=== PATIENT | male | born 1940 | race Caucasian/White ===

== ENCOUNTER → 2018-12-31 | Outpatient (CLI) | payer MEDICARE ==
[~2018-12-31] MED LIST: ALBU90OI INH; AMLO5; AMLO5 PO; ASPI325EC PO; ASPI81CH; B-12500 MCG PO; BISA10S PR; BUDE6HFA; BUDE6HFA INH; CENTRUM SILVER1 EAC2 PO; Coq-1030 MG PO; DOCU100 PO; DOXY100T53; DULERA 200 MCG/13 GM; DULERA 200 MCG/13 GM INH; EPINEPHRIN0.3 MG/0.3; FISH1000 PO; FLONASE ALLERG9.9 ML; FLONASE ALLERG9.9 ML INH; FOLI1 PO; GABA300 PO; GLIM2 PO; HYDCHL25 PO; INSDET100 SC; INSU100I6 SC; K-Dur10 MEQ PO; LAVAP17G PO; LEVFLO500; LISHYD2025 PO; LISI20 PO; LISI5; LORA.5 PO; LOVA40; LOVA40 PO; METF500C PO; METF850; METO25; METO25ER; METO25ER PO; MULVITMIND PO; Micro-K10 MEQ; Micro-K10 MEQ PO; Milk Of Ma400 MG/5 M PO; NUTRISOURCE FIBE4 GM PO; OMEP20ER PO; OMEPRAZOLE DR 40 MG; Omeprazole20 M1 PO; POTA10T; POTCHL10ER PO; PRED10; PRED20 PO; Potassium Chlo10 ME1; THIA100 PO; TIOT18 INH; TORSE20 PO; TUDORZA PRESS400 MCG IH; TUDORZA PRESS400 MCG INH; Ventolin5 MG/1 ML INH; [UNRECOGNIZED DRUG - CODE] PO
== END | disposition home or self-care (01) ==
LOC: LAB EV 10:00
DX: E11.9 Type 2 diabetes mellitus without complications (principal); I10 Essential (primary) hypertension; E78.2 Mixed hyperlipidemia
CPT/HCPCS: 82043

== ENCOUNTER 2020-01-13 16:10 | Emergency (ER) | payer MEDICARE ==
[~2020-01-13] VITALS: Ht 177.8 cm; Wt 108.9 kg
== END 2020-01-13 20:11 | disposition home or self-care (01) ==
LOC: ER 16:10
DX: M16.12 Unilateral primary osteoarthritis, left hip (principal); M17.0 Bilateral primary osteoarthritis of knee; E11.9 Type 2 diabetes mellitus without complications; I10 Essential (primary) hypertension; E78.5 Hyperlipidemia, unspecified; G47.33 Obstructive sleep apnea (adult) (pediatric); N40.0 Benign prostatic hyperplasia without lower urinary tract symptoms; Z87.891 Personal history of nicotine dependence; Z88.0 Allergy status to penicillin; Z88.8 Allergy status to other drugs, medicaments and biological substances; Z79.82 Long term (current) use of aspirin; Z79.4 Long term (current) use of insulin; Z79.899 Other long term (current) drug therapy; W19.XXXA Unspecified fall, initial encounter
CPT/HCPCS: 29505; 73502; 73562-LT; 73562-RT; 99283-25; A9270-GY

== ENCOUNTER 2020-02-24 09:24 | Inpatient (IN) | payer MEDICARE ==
[~2020-02-24] VITALS: Ht 177.8 cm; Wt 97.7 kg
[~2020-02-24 09:24] MED LIST changes: -INSDET100 SC; +STIOLTO RESPIMAT4 GM IH
[2020-02-24 10:03] LABS: BASOPHILS ABSOLUTE AUTO 0.06 K/mm3 (0.00-0.23); BASOPHILS PERCENT AUTO 1 % (0-2); EOSINOPHILS PERCENT AUTO 1 % (0-6); Hematocrit 44.6 % (37.0-53.0); Hemoglobin 14.2 g/dL (13.5-17.5); IMMATURE GRAN ABSOLUTE AUTO 0.06 K/mm3 (0.00-0.10); IMMATURE GRAN PERCENT AUTO 1 % (0-1); LYMPHOCYTES ABSOLUTE AUTO 3.01 K/mm3 (0.84-5.20); LYMPHOCYTES PERCENT AUTO 25 % (21-46); MONOCYTES ABSOLUTE AUTO 1.08 K/mm3 (0.16-1.47); MONOCYTES PERCENT AUTO 9 % (4-13); Mean Corpuscular HGB 31.1 pg (26.0-34.0); Mean Corpuscular HGB Conc 31.8 g/dL (31.5-36.5); Mean Corpuscular Volume 98 fL (80-100); Mean Platelet Volume 11.3 fL (9.1-12.4); NEUTROPHILS ABSOLUTE AUTO 7.86 K/mm3 (1.96-9.15); NEUTROPHILS PERCENT AUTO 65 % (41-73); Platelet Count 358 K/mm3 (150-400); RDW Coefficient Variation 14.4 % (11.7-14.2); RDW Standard Deviation 51.5 fL (35.1-46.3); Red Blood Cell Count 4.56 M/mm3 (4.30-5.90); White Blood Cell Count 12.17 K/mm3 (4.00-11.30)
[2020-02-24] MEDS ORDERED: Aspir 8181 MG PO (10:18)
[2020-02-24 10:19] LABS: International Normalized Ratio 1.02; Prothrombin Time Results 10.9 Sec (9.7-11.5)
[2020-02-24] MEDS ORDERED: INSDET100 SC (10:24)
--- NOTE | 2020-02-24 10:42 | NUR ---
1040 LAB AT BEDSIDE FOR BMP REDRAW, PRIOR SAMPLE HEMOLYZED.
[2020-02-24 11:09] LABS: Anion Gap 7 mmol/L (6-16); Blood Urea Nitrogen 27 mg/dL (8-24); Bun/Creatinine Ratio 28.8 (12.0-20.0); CO2, Blood 26 mmol/L (21-32); Calcium, Blood 9.2 mg/dL (8.5-10.1); Chloride, Blood 111 mmol/L (98-108); Creatinine, Blood 0.94 mg/dL (0.60-1.20); Glomerular Filtration Rate >60 (60-); Glucose, Blood 113 mg/dL (70-99); Sodium, Blood 144 mmol/L (136-145)
--- NOTE | 2020-02-24 19:24 | NUR ---
SIHFT SUMMARY RECEIVED BEDSIDE REPORT FROM LONG AGUIRRE RN FROM CHIEF CREATIVE OFFICER; PT TO ROOM AT 1410 IN BED. PT ORIENTED TO ROOM AND CALL LIGHT; EDUCATED ON FALL RISK. PT A&Ox4; CALM AND COOPERATIVE WITH CARE. PT REST IN BED DURING SHIFT. PT PACEMAKER PLACED TO LEFT CHEST WALL; DRESSING C/D/I. PT DENIES PAIN, CHEST PAIN/PRESSURE/TENDERNESS, SOB, NAUSEA AND DIZZINESS. VSS. NO OTHER ACUTE CHANGES NOTED DURING SHIFT. REPORT GIVEN TO ONCOMING RN.
--- NOTE | 2020-02-25 05:58 | NUR ---
SHIFT SUMMARY: PATIENT COOPERATIVE WITH CARE AND KEEPING ARM WITHIN HIS SLING WITH VERY LITTLE MOVEMENT. APPROX 0330 PATIENT HR BEGAN TO DROP INTO THE MID 40'S, HEART MONITOR DISPLAYED DROPPED BEATS POST PACER SPIKE. THIS HAPPENED INTERMITTENTLY AND PATIENT ASYMPTOMATIC WITH EPISODES, NO OTHER ISSUES NOTED, MONITORED CLOSELY.
--- NOTE | 2020-02-25 18:23 | NUR ---
SHIFT SUMMARY DR MIX AT BEDSIDE THIS AM; PT TAKEN BACK TO TILTING SAW OPERATOR FOR LEAD REPOSITIONING. PT BACK TO ROOM AT APPROX 1030; LEFT CHEST WALL DRESSING HAS SMALL AMOUNT OF YELLOW DRAINAGE; SMALL AMOUNT OF REDNESS NOTED SURROUNDING THE SITE, WILL CONTINUE TO MONITOR. NO OTHER EVENTS NOTED BY TELE. PT APPEARS TO BE SLEEPING FOR MAJORITY OF MORNING; REQUESTING WE WAIT FOR MEDICATIONS AND FOOD. PT APPEARED DROWSY AND SHAKEY; CBG 76; PT AWAKE AND EATING LUNCH. PT REPORT BEING UNCOMFORTABLE, REPOSITIONED FOR COMFORT. VSS. NO OTHER ACUTE CHANGES NOTED DURING SHIFT. REPORT GIVEN TO ONCOMING RN.
--- NOTE | 2020-02-26 04:19 | NUR ---
SHIFT SUMMARY: PATIENT EXPERIENCING MULTIPLE ISSUES WITH PAIN AND TEMPERATURE AFTER SECOUND SURGERY TO REPLACE PATIENTS DISLOGED LEAD. MEDICATIONS ADMINISTERD PER MD ORDER, PATIENT SLOWLY IMPROVING THROUGHOUT SHIFT. IMMOBILIZER PLACED ON LEFT ARM TO PREVENT ANY OTHER ISSUES WIH PACER LEADS. INTERMITTENT INCONTINANCE AND SOME MILD INTEMITTENT CONFUSION. VSS, CALL LIGHT WITHIN REACH, BED LOW AND LOCKED AND PATIENT MONITORED CAREFULLY.
--- NOTE | 2020-02-26 16:55 | NUR ---
SHIFT SUMMARY... ASSUMED CARE OF THE PT APROX 0700. PT WAS A&Ox4, S/P PACEMAKER PLACEMENT. PT WAS TO D/C HOME TODAY. PT'S VS WERE STABLE UNTIL APROX 1050, WHEN HIS BP DROPPED INTO THE 70'S/50'S. PT WAS SYMPTOMATIC FEELING DIZZY AND HAVING NAUSEA, PT WAS ALSO PALE AND DIAPHORETIC DURING THIS TIME. PROVIDER WAS CALLED, 500MLS BOLUS WAS ORDERED. THIS IMPROVED THE PT'S VS SLOWLY OVER SEVERAL HOURS. ONCE THE PT'S BP WAS STABLE PT WAS GOTTEN UP TO THE SIDE OF THE BED TO SEE HOW THE PT TOLERATED ACTIVITY. IT TOOK 2 STAFF TO HELP THE PT STAND UP AND TRANSFER TO A CHAIR. PT/OT WAS ORDERED TO EVALUATE THE PT'S SAFETY TO D/C HOME. IT TOOK 3 STAFF TO HELP THE PT BACK INTO BED. PROVIDER IS AWARE AND D/C WAS STOPPED AT THIS TIME. CURRENTLY PT'S VS STABLE, HE IS ON HIS BASELINE OF 3L NC. SHOULDER IMMOBILIZER IS IN PLACE. CALL LIGHT IN REACH WILL CONTINUE TO MONITOR UNTIL REPORT IS GIVEN TO ONCOMING RN.
--- NOTE | 2020-02-27 04:02 | NUR ---
SHIFT SUMMARY PT IS A/O X4. S/P PACER PLACEMENT 02/23 WITH REVISION 02/24 FOR DISLODGED LEADS. PT HAS HAD ARM IMMOBILIZER IN PLACE TO L ARM. DRESSING TO L CHEST CDI. PT HAS BEEN USING O2 NC WHICH IS BASELINE FOR HIM. TELE IN PLACE THROUGHOUT THE SHIFT. NO ACUTE CHANGES. VSS. WCTM.
[2020-02-27 14:04] LABS: BASOPHILS ABSOLUTE AUTO 0.04 K/mm3 (0.00-0.23); BASOPHILS PERCENT AUTO 0 % (0-2); EOSINOPHILS ABSOLUTE AUTO 0.19 K/mm3 (0.00-0.68); EOSINOPHILS PERCENT AUTO 1 % (0-6); Hematocrit 45.5 % (37.0-53.0); Hemoglobin 14.5 g/dL (13.5-17.5); IMMATURE GRAN ABSOLUTE AUTO 0.06 K/mm3 (0.00-0.10); IMMATURE GRAN PERCENT AUTO 0 % (0-1); LYMPHOCYTES PERCENT AUTO 22 % (21-46); MONOCYTES ABSOLUTE AUTO 1.77 K/mm3 (0.16-1.47); MONOCYTES PERCENT AUTO 13 % (4-13); Mean Corpuscular HGB 31.1 pg (26.0-34.0); Mean Corpuscular HGB Conc 31.9 g/dL (31.5-36.5); Mean Corpuscular Volume 98 fL (80-100); Mean Platelet Volume 10.1 fL (9.1-12.4); NEUTROPHILS ABSOLUTE AUTO 8.43 K/mm3 (1.96-9.15); NEUTROPHILS PERCENT AUTO 63 % (41-73); Platelet Count 281 K/mm3 (150-400); RDW Coefficient Variation 14.3 % (11.7-14.2); RDW Standard Deviation 51.4 fL (35.1-46.3); Red Blood Cell Count 4.66 M/mm3 (4.30-5.90); White Blood Cell Count 13.49 K/mm3 (4.00-11.30)
[2020-02-27 15:08] LABS: Alanine Aminotransfer (ALT/SGP 13 U/L (12-78); Albumin, Blood 2.5 g/dL (3.4-5.0); Albumin/Globulin Ratio 0.5 (0.8-1.8); Alk Phos 85 U/L (50-136); Anion Gap 13 mmol/L (6-16); Aspartate Aminotrans (AST/SGOT 16 U/L (12-37); Bilirubin, Total 0.9 mg/dL (0.1-1.0); Blood Urea Nitrogen 30 mg/dL (8-24); CO2, Blood 18 mmol/L (21-32); Calcium, Blood 9.1 mg/dL (8.5-10.1); Chloride, Blood 107 mmol/L (98-108); Creatinine, Blood 0.91 mg/dL (0.60-1.20); Globulin, Blood 5.3 g/dL (2.2-4.0); Glomerular Filtration Rate >60 (60-); Glucose, Blood 70 mg/dL (70-99); Potassium, Blood 4.1 mmol/L (3.5-5.5); Sodium, Blood 138 mmol/L (136-145); Total Protein, Blood 7.8 g/dL (6.4-8.2)
--- NOTE | 2020-02-27 15:40 | NUR ---
CL 2.4 LACTIC RECEIVED CALL FROM LAB. CALLED HOSPITALIST BLACK PAGER W/RETURN NUMBER FOR PCU.
--- NOTE | 2020-02-27 15:52 | NUR ---
RECEIVED CALL FROM HOSPITALIST Aruna MALONE RE LACTIC ACID 2.4; RECEIVED NEW ORDER FOR NS @ 100 MLS/HR.
[2020-02-27 16:05] LABS: Source, Urine Clean Catch
[2020-02-27 16:11] LABS: Bilirubin, Urine Neg (Neg); Blood, Urine Neg (Neg); Glucose Qualitative, Urine Neg (Neg); Ketones, Urine Neg (Neg); Leukocyte Esterase, Urine 1+ (Neg); Nitrite, Urine Neg (Neg); Protein, Urine Neg (Neg); Specific Gravity, Urine 1.015 (1.003-1.022); Urobilinogen, Urine NORM (Normal)
[2020-02-27 16:17] LABS: Appearance, Urine Clear (Clear); Color, Urine Yellow (P-Yellow)
[2020-02-27 16:18] LABS: Bacteria Few /hpf; Granular Casts 0-2 /lpf (0); Red Blood Cells, Urine 0-2 /hpf (0-2); Squamous Epithelial Cells Not Seen /hpf (Few)
--- NOTE | 2020-02-27 18:09 | NUR ---
SHIFT SUMMARY A/O X4, VSS. UP TO CHAIR DURING SHIFT, PT EVAL, EDU&ENC TCDB, IS. FLUID RESUSCITATION STARTED AFTER CRIT LACT ACID LAB; 1L NS, LEVOFLOXACIN/CLINDAMYCIN. IV REPLACED BETWEEN ANTIBIOTICS. PT IN BED W/ FLUIDS INFUSING, WILL CONTINUE TO MONITOR. REPORT TO BE GIVEN TO GERMAN JUÁREZ.
--- NOTE | 2020-02-27 18:26 | NUR ---
TELEPHONE CALL WITH HOSPITALIST RAYO RE CH LACTIC OF 2.9; EXPLAINED NS BOLUS INFUSION NOT COMPLETE AFTER 1ST CH 2.4; NEW ORDER FOR FU LACTIC ACID LAB FOLLOWING BOLUS INFUSION.
--- NOTE | 2020-02-27 19:16 | NUR ---
1L BOLUS NS COMPLETE.
[2020-02-28 03:47] LABS: BASOPHILS ABSOLUTE AUTO 0.04 K/mm3 (0.00-0.23); BASOPHILS PERCENT AUTO 0 % (0-2); EOSINOPHILS ABSOLUTE AUTO 0.23 K/mm3 (0.00-0.68); EOSINOPHILS PERCENT AUTO 2 % (0-6); Hematocrit 40.9 % (37.0-53.0); Hemoglobin 12.7 g/dL (13.5-17.5); IMMATURE GRAN ABSOLUTE AUTO 0.04 K/mm3 (0.00-0.10); IMMATURE GRAN PERCENT AUTO 0 % (0-1); LYMPHOCYTES PERCENT AUTO 21 % (21-46); MONOCYTES ABSOLUTE AUTO 1.31 K/mm3 (0.16-1.47); MONOCYTES PERCENT AUTO 11 % (4-13); Mean Corpuscular HGB 30.5 pg (26.0-34.0); Mean Corpuscular HGB Conc 31.1 g/dL (31.5-36.5); Mean Corpuscular Volume 98 fL (80-100); Mean Platelet Volume 10.1 fL (9.1-12.4); NEUTROPHILS ABSOLUTE AUTO 7.43 K/mm3 (1.96-9.15); NEUTROPHILS PERCENT AUTO 65 % (41-73); Platelet Count 245 K/mm3 (150-400); RDW Coefficient Variation 14.2 % (11.7-14.2); RDW Standard Deviation 51.3 fL (35.1-46.3); Red Blood Cell Count 4.17 M/mm3 (4.30-5.90); White Blood Cell Count 11.45 K/mm3 (4.00-11.30)
[2020-02-28 04:09] LABS: Albumin, Blood 2.2 g/dL (3.4-5.0); Anion Gap 9 mmol/L (6-16); Blood Urea Nitrogen 29 mg/dL (8-24); CO2, Blood 23 mmol/L (21-32); Calcium, Blood 8.6 mg/dL (8.5-10.1); Chloride, Blood 109 mmol/L (98-108); Creatinine, Blood 0.97 mg/dL (0.60-1.20); Glomerular Filtration Rate >60 (60-); Glucose, Blood 102 mg/dL (70-99); Magnesium, Blood 1.8 mg/dL (1.6-2.4); Phosphorus, Blood 3.3 mg/dL (2.5-4.9); Potassium, Blood 3.8 mmol/L (3.5-5.5); Sodium, Blood 141 mmol/L (136-145)
--- NOTE | 2020-02-28 06:03 | NUR ---
SHIFT SUMMARY PT A&O; COMPLIANT W/ CARE; VSS; DENIES CHEST PAIN; PACED W/ UNDERLYING AFLUTTER NOTED ON TELE; O2 SATS >93 ON 3L NC; DIM LUNG SOUNDS NOTED; PO FLUIDS & SNACKS ENCOURAGED; NS INFUSING; DENTURE CUP BROUGHT TO PT AND SOAKED FULL SET AT BEDTIME; CALL LIGHT IN REACH; BED IN LOWEST POSITION; WILL CONTINUE TO MONITOR CLOSELY UNTIL HAND OFF TO DAY SHIFT RN.
--- NOTE | 2020-02-28 18:11 | NUR ---
SHIFT SUMMARY NO ACUTE CHANGES NOTED THROUGH THE DAY. VSS, PT REMAINS ON 3L O2 VIA NC. LACTIC ACID STILL ELEVATED, 1000 ML NS BOLUS WAS GIVEN PER ORDERS, PACER DRSG REMAINS C/D/I, LEFT ARM IMMOBILIZED, ELEVATED ON A PILLOW, CIRC WNL, MINIMAL PAIN REPORTED AT SITE. PT IS TOLERATING PO INTAKE, VOIDING WNL, SCD'S ARE ON, CALL LIGHT IN REACH, WCTM
[2020-02-29 04:07] LABS: BASOPHILS ABSOLUTE AUTO 0.05 K/mm3 (0.00-0.23); BASOPHILS PERCENT AUTO 0 % (0-2); EOSINOPHILS ABSOLUTE AUTO 0.14 K/mm3 (0.00-0.68); EOSINOPHILS PERCENT AUTO 1 % (0-6); Hematocrit 39.7 % (37.0-53.0); Hemoglobin 12.5 g/dL (13.5-17.5); IMMATURE GRAN ABSOLUTE AUTO 0.06 K/mm3 (0.00-0.10); IMMATURE GRAN PERCENT AUTO 1 % (0-1); LYMPHOCYTES ABSOLUTE AUTO 2.65 K/mm3 (0.84-5.20); LYMPHOCYTES PERCENT AUTO 21 % (21-46); MONOCYTES ABSOLUTE AUTO 1.58 K/mm3 (0.16-1.47); MONOCYTES PERCENT AUTO 13 % (4-13); Mean Corpuscular HGB Conc 31.5 g/dL (31.5-36.5); Mean Corpuscular Volume 99 fL (80-100); Mean Platelet Volume 9.9 fL (9.1-12.4); NEUTROPHILS ABSOLUTE AUTO 8.17 K/mm3 (1.96-9.15); NEUTROPHILS PERCENT AUTO 65 % (41-73); Platelet Count 266 K/mm3 (150-400); RDW Coefficient Variation 14.2 % (11.7-14.2); RDW Standard Deviation 51.7 fL (35.1-46.3); Red Blood Cell Count 4.03 M/mm3 (4.30-5.90); White Blood Cell Count 12.65 K/mm3 (4.00-11.30)
[2020-02-29 04:30] LABS: Albumin, Blood 2.2 g/dL (3.4-5.0); Anion Gap 9 mmol/L (6-16); Blood Urea Nitrogen 23 mg/dL (8-24); Bun/Creatinine Ratio 23.4 (12.0-20.0); CO2, Blood 22 mmol/L (21-32); Calcium, Blood 8.7 mg/dL (8.5-10.1); Chloride, Blood 111 mmol/L (98-108); Creatinine, Blood 0.98 mg/dL (0.60-1.20); Glomerular Filtration Rate >60 (60-); Glucose, Blood 114 mg/dL (70-99); Magnesium, Blood 1.6 mg/dL (1.6-2.4); Potassium, Blood 4.4 mmol/L (3.5-5.5); Sodium, Blood 142 mmol/L (136-145)
--- NOTE | 2020-02-29 07:46 | NUR ---
SHIFT SUMMARY PT A&O; VSS; PACED ON TELE W/ UNDERLYING AFLUTTER; DENIES CHEST PAIN; BINDER IN PLACE TO HOLD L ARM; DRESSING C/D/I; O2 SATS >93 ON 4L NC; RT TO BEDSIDE TO ASSESS CPAP NEEDS; INCONTINENT W/ ATTENDS IN PLACE; CALL LIGHT IN REACH; BED IN LOWEST POSITION; REPORT GIVEN TO DAY SHIFT RN.
--- NOTE | 2020-02-29 18:31 | NUR ---
SHIFT SUMMARY NO ACUTE CHANGES NOTED THROUGH THE DAY. PT ENC TO USE INCENTIVE SPIROMETER FREQUENTLY, EDUCATION PROVIDED, DRSG REMAINS C/D/I, PT DENIES PAIN, VSS, 4 L O2 VIA NC. TOLERATING PO INTAKE, VOIDING WNL. WCTM
[2020-03-01 03:38] LABS: BASOPHILS ABSOLUTE AUTO 0.05 K/mm3 (0.00-0.23); BASOPHILS PERCENT AUTO 0 % (0-2); EOSINOPHILS ABSOLUTE AUTO 0.36 K/mm3 (0.00-0.68); EOSINOPHILS PERCENT AUTO 3 % (0-6); Hematocrit 39.7 % (37.0-53.0); Hemoglobin 12.5 g/dL (13.5-17.5); IMMATURE GRAN ABSOLUTE AUTO 0.05 K/mm3 (0.00-0.10); IMMATURE GRAN PERCENT AUTO 0 % (0-1); LYMPHOCYTES ABSOLUTE AUTO 2.57 K/mm3 (0.84-5.20); LYMPHOCYTES PERCENT AUTO 22 % (21-46); MONOCYTES ABSOLUTE AUTO 1.45 K/mm3 (0.16-1.47); MONOCYTES PERCENT AUTO 12 % (4-13); Mean Corpuscular HGB 30.8 pg (26.0-34.0); Mean Corpuscular HGB Conc 31.5 g/dL (31.5-36.5); Mean Corpuscular Volume 98 fL (80-100); Mean Platelet Volume 9.8 fL (9.1-12.4); NEUTROPHILS ABSOLUTE AUTO 7.32 K/mm3 (1.96-9.15); NEUTROPHILS PERCENT AUTO 62 % (41-73); Platelet Count 245 K/mm3 (150-400); RDW Coefficient Variation 14.2 % (11.7-14.2); RDW Standard Deviation 51.4 fL (35.1-46.3); Red Blood Cell Count 4.06 M/mm3 (4.30-5.90)
[2020-03-01 03:53] LABS: Albumin, Blood 2.3 g/dL (3.4-5.0); Anion Gap 8 mmol/L (6-16); Blood Urea Nitrogen 20 mg/dL (8-24); Bun/Creatinine Ratio 25.6 (12.0-20.0); CO2, Blood 23 mmol/L (21-32); Chloride, Blood 110 mmol/L (98-108); Creatinine, Blood 0.78 mg/dL (0.60-1.20); Glomerular Filtration Rate >60 (60-); Glucose, Blood 107 mg/dL (70-99); Magnesium, Blood 1.7 mg/dL (1.6-2.4); Phosphorus, Blood 3.4 mg/dL (2.5-4.9); Potassium, Blood 4.3 mmol/L (3.5-5.5); Sodium, Blood 141 mmol/L (136-145)
--- NOTE | 2020-03-01 05:39 | NUR ---
SHIFT SUMMARY PT A&O; VSS; O2 SATS >93 ON 4L NC; PT DESATS WHEN SLEEPING; CPAP USED A COUPLE OF HOURS AND THEN PT REFUSED; RT AT BEDSIDE TO ASSESS; CONTINENT/INCONTINENT W/ ATTENDS IN PLACE; KCL INFUSING; CALLS APPROPRIATELY; CALL LIGHT IN REACH; BED IN LOWEST POSITION; WILL CONTINUE TO MONITOR UNTIL HAND OFF TO DAY SHIFT RN.
--- NOTE | 2020-03-01 16:21 | NUR ---
PT TRANSFERED. PT TRANSFERED TO ROOM 336 FROM [facility]. PT UP IN RECLINER AT THIS TIME. ORIENTED TO ROOM. CALL LIGHT IN REACH. AFTERNOON MEDS GIVEN. PT STABLE & NO CHANGES IN PRIOR ASSESSMENT AT THIS TIME. WILL CONTINUE TO MONITOR UNTIL TURNOVER IS COMPLETE.
--- NOTE | 2020-03-02 06:08 | NUR ---
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 PT has sinus with occasional paced. He uses oxygen or CPAP for LIZETTE. Desats to as low as 75% on room air when PT removed oxygen. Has bioxx which alarms frequently. CO lt upper chest wall pain meds given x 2 with helpful effect. Up with 2 max assist to get back to bed from bedside chair. Needs extensive cues & assist. PT on xaralto & oral antihyperglycemics blood glucose 105 at HS. BVed larm to prevent unassisted transfers. Continues on IV fluids with k at 125 ml hour. Bilat LE & generalized edema.
--- NOTE | 2020-03-02 16:25 | NUR ---
SHIFT SUMMARY PT IS A/O TO HIMSELF, SITUATION AND FOLLOWING DIRECTIONS. HE IS A MAX X 2 ASSIST FOR TRANSFERS AND HAS BEEN WORKING WITH THERAPY TODAY. HE WAS IN IN THE CHAIR FOR MEALS. DRESSING TO PACEMAKER ON LEFT CHEST WALL IS C.D.I. HE DID C/O PAIN TO THE PACEMAKER SITE AND WAS MEDICATED ORDERED AND REPORTED THE PAIN MEDS TO BE EFFECTIVE. PER CARE MANAGEMENT HE IS SCHEDULED TO DC TO SNF THIS JUAN CARLOS. AND EARLY DINNER TRAY WAS ORDERED FOR HIM SO HE CAN EAT BEFORE HE LEAVES. IV FLUIDS/ ABO HAVE INFUSED ORDERED WITH NO ISSUE. REPORT WAS CALLED TO . AND HIS RIDE IS SCHEDULED FOR 1744.
[2020-03-02] MEDS ORDERED: Florastor250 MG PO (18:01)
[2020-03-02] MEDS ORDERED: CLIN300 PO (18:01)
[2020-03-02] MEDS ORDERED: XARELTO20 MG PO (18:02)
== END 2020-03-02 17:44 | DRG 981 ==
LOC: MHTC 09:24 → PCU 13:53 → MHTC 02-25 15:13 → PCU 02-25 15:14 → MEDS 03-01 15:51
PROVIDERS: Internal Medicine Gastroenterology; ADMIT Internal Medicine Cardiovascular Disease
PROC: 0JH606Z Insertion of Pacemaker, Dual Chamber into Chest Subcutaneous Tissue and Fascia, Open Approach (ICD-10-PCS; principal; 2020-02-24)
PROC: 02HK3JZ Insertion of Pacemaker Lead into Right Ventricle, Percutaneous Approach (ICD-10-PCS; 2020-02-24)
PROC: 02H63JZ Insertion of Pacemaker Lead into Right Atrium, Percutaneous Approach (ICD-10-PCS; 2020-02-24)
PROC: 3E0102A Introduction of Anti-Infective Envelope into Subcutaneous Tissue, Open Approach (ICD-10-PCS; 2020-02-24)
PROC: 02WA3MZ Revision of Cardiac Lead in Heart, Percutaneous Approach (ICD-10-PCS; 2020-02-25)
DX: J69.0 Pneumonitis due to inhalation of food and vomit (principal); J96.21 Acute and chronic respiratory failure with hypoxia; I44.2 Atrioventricular block, complete; E87.2 Acidosis; J44.1 Chronic obstructive pulmonary disease with (acute) exacerbation; I48.0 Paroxysmal atrial fibrillation; I10 Essential (primary) hypertension; I49.5 Sick sinus syndrome; E66.9 Obesity, unspecified; Z79.01 Long term (current) use of anticoagulants; G47.33 Obstructive sleep apnea (adult) (pediatric); E11.9 Type 2 diabetes mellitus without complications; E78.00 Pure hypercholesterolemia, unspecified; K20.9 Esophagitis, unspecified; Z99.81 Dependence on supplemental oxygen
CPT/HCPCS: 33208; 33215; 36415; 71045; 71046; 80048; 80053; 80069; 81001; 82947; 83605; 83735; 83880; 84145; 85025; 85610; 85730; 87040; 87086; 93306; 94640; 94660; 94760; 94762; 97110; 97112; 97162; 97166; 97530; 99152; 99153; A9270; A9270-GY; C1781; C1785; C1894; C1898; J0690; J1644; J1956; J2250; J3010; J3370; J3480; J7030; J7040; U0002

== ENCOUNTER 2020-03-08 01:01 | Emergency (ER) | payer MEDICARE ==
[~2020-03-08] VITALS: Ht 177.8 cm; Wt 103.4 kg
[~2020-03-08 01:01] MED LIST changes: +Aspir 8181 MG PO; +CLIN300 PO; +Florastor250 MG PO; +INSDET100 SC; +XARELTO20 MG PO
== END 2020-03-08 01:30 | disposition home or self-care (01) ==
LOC: ER 01:01
DX: Z00.8 Encounter for other general examination (principal); E11.9 Type 2 diabetes mellitus without complications; I10 Essential (primary) hypertension; E78.5 Hyperlipidemia, unspecified; J44.9 Chronic obstructive pulmonary disease, unspecified; G47.33 Obstructive sleep apnea (adult) (pediatric); Z87.891 Personal history of nicotine dependence; Z95.0 Presence of cardiac pacemaker
CPT/HCPCS: 99284

== ENCOUNTER 2020-08-23 06:12 | Inpatient (IN) | payer MEDICARE ==
[~2020-08-23] VITALS: Ht 180.3 cm; Wt 104.8 kg
[~2020-08-23 06:12] MED LIST changes: +STIOLTO RESPIMAT4 G1 INH
--- NOTE | 2020-08-23 07:05 | NUR ---
History, Chart, Medications and Allergies reviewed before start of procedure. Lungs clear T/O to Auscultation. Pre-Op teaching done. Pt verbalizes understanding.
--- NOTE | 2020-08-23 17:06 | NUR ---
SHIFT SUMMARY PT HAS DONE WELL POST OP. EATING, DRINKING, & VOIDING. WORKED WITH THERAPY. CONTINUES TO DENY PAIN. DECLINES SCHEDULED TYLENOL. DISCUSSED PREMEDCATING. NOT INTERESTED.
[2020-08-24 04:49] LABS: BASOPHILS ABSOLUTE AUTO 0.03 K/mm3 (0.00-0.23); BASOPHILS PERCENT AUTO 0 % (0-2); EOSINOPHILS PERCENT AUTO 0 % (0-6); IMMATURE GRAN ABSOLUTE AUTO 0.07 K/mm3 (0.00-0.10); IMMATURE GRAN PERCENT AUTO 0 % (0-1); LYMPHOCYTES ABSOLUTE AUTO 2.31 K/mm3 (0.84-5.20); LYMPHOCYTES PERCENT AUTO 13 % (21-46); MONOCYTES ABSOLUTE AUTO 2.15 K/mm3 (0.16-1.47); MONOCYTES PERCENT AUTO 12 % (4-13); Mean Corpuscular HGB 29.2 pg (26.0-34.0); Mean Corpuscular HGB Conc 31.6 g/dL (31.5-36.5); Mean Corpuscular Volume 93 fL (80-100); Mean Platelet Volume 10.2 fL (9.1-12.4); NEUTROPHILS ABSOLUTE AUTO 13.72 K/mm3 (1.96-9.15); NEUTROPHILS PERCENT AUTO 75 % (41-73); Platelet Count 224 K/mm3 (150-400); RDW Coefficient Variation 14.1 % (11.7-14.2); RDW Standard Deviation 47.8 fL (35.1-46.3); Red Blood Cell Count 4.11 M/mm3 (4.30-5.90); White Blood Cell Count 18.28 K/mm3 (4.00-11.30)
--- NOTE | 2020-08-24 05:12 | NUR ---
SHIFT SUMMARY LYING IN SEMI FOWLERS WITH EYES CLOSED, HAS RESTED THIS SHIFT. PAIN MANAGED WITH TYLENOL AND TORADOL PER MD ORDERS. DRESSING TO RIGHT HIP IS C/D/I. DENIES PAIN, DISCOMFORT OF FURTHER NEEDS AT THIS TIME. NO FURTHER SIGNIFICANT CHANGES THIS SHIFT. SAFETY MEASURES IN PLACE. WILL CONTINUE TO MONITOR AND GIVE HAND OFF TO ONCOMING SHIFT USING SBAR.
[2020-08-24 05:24] LABS: Anion Gap 5 mmol/L (6-16); Blood Urea Nitrogen 27 mg/dL (8-24); Bun/Creatinine Ratio 26.5 (12.0-20.0); CO2, Blood 26 mmol/L (21-32); Calcium, Blood 8.7 mg/dL (8.5-10.1); Chloride, Blood 108 mmol/L (98-108); Creatinine, Blood 1.02 mg/dL (0.60-1.20); Glomerular Filtration Rate >60 (60-); Glucose, Blood 149 mg/dL (70-99); Magnesium, Blood 2.2 mg/dL (1.6-2.4); Potassium, Blood 4.1 mmol/L (3.5-5.5); Sodium, Blood 139 mmol/L (136-145)
--- NOTE | 2020-08-24 11:00 | NUR ---
WORKED WITH THERAPY THIS AM, PLAN FOR 2ND SESSION THIS AFTERNOON W/ POSSIBLE DC THIS EVENING.
[2020-08-24] MEDS ORDERED: ACET500 PO (12:24)
[2020-08-24] MEDS ORDERED: OXYC5 PO (12:24)
--- NOTE | 2020-08-24 15:30 | NUR ---
AFTERNOON THERAPY PT DID NOT CLEAR THERAPY. PLAN FOR SESSION IN AM AND DC PENDING CLEARANCE OF THERAPY. PAIN WELL MANAGED.
--- NOTE | 2020-08-24 17:57 | NUR ---
SHIFT SUMMARY PT HAS DONE WELL TODAY BUT DUE TO NOT CLEARING THERAPY WILL STAY OVERNIGHT. REPORTS PAIN MINIMAL. EATING, DRINKING, AND VOIDING WELL. SURG SITE WNL.
--- NOTE | 2020-08-25 05:04 | NUR ---
SHIFT SUMMARY CURRENTLY IN SHOWER AFTER SECOND SPILL OF URINAL THIS SHIFT. LINEN CHANGE COMPLETED BY George MINAYA CNA. PT HAS RESTED THIS SHIFT. PAIN MANAGED WITH TYLENOL AND OXY PER MD ORDERS. DRESSING TO RIGHT HIP IS C/D/I. DENIES PAIN, DISCOMFORT OF FURTHER NEEDS AT THIS TIME. NO FURTHER SIGNIFICANT CHANGES THIS SHIFT. SAFETY MEASURES IN PLACE. WILL CONTINUE TO MONITOR AND GIVE HAND OFF TO ONCOMING SHIFT USING SBAR.
--- NOTE | 2020-08-25 15:26 | NUR ---
DISCHARGE SUMMARY PT A&OX4, VSS, LEFT FLOOR VIA WC W/BASKETBALL ASSEMBLER, TO GO HOME WITH , WITH ALL PERSONAL POSSESSIONS INCLUDING DC PACKET, 1 NARC SCRIPT, 2 AQUACEL DRESSINGS. DC INSTRUCTIONS PROVIDED TO PT AND . AND PT REP UNDERSTANDING INSTRUCTIONS INCLUDING OUTPT PHYSICAL THERAPY, FU WITH SURGEON, CHANGE DRESSINGS, OKAY TO SHOWER, NO TUB/JACUZZI, FWW WITH ALL SHORT, FREQUENT AMBULATION. IV DC'D.
== END 2020-08-25 15:35 | disposition home health service (06) | DRG 470 ==
LOC: ORD 06:12 → ORSCMMR 06:12 → ORD 07:30 → SURS 07:50
PROVIDERS: ADMIT Orthopaedic Surgery
PROC: 0SRB04A Replacement of Left Hip Joint with Ceramic on Polyethylene Synthetic Substitute, Uncemented, Open Approach (ICD-10-PCS; principal; 2020-08-23 07:30)
DX: M16.12 Unilateral primary osteoarthritis, left hip (principal); I10 Essential (primary) hypertension; J44.9 Chronic obstructive pulmonary disease, unspecified; Z95.0 Presence of cardiac pacemaker; Z79.82 Long term (current) use of aspirin; Z79.01 Long term (current) use of anticoagulants; Z87.891 Personal history of nicotine dependence; Z99.81 Dependence on supplemental oxygen
CPT/HCPCS: 36415; 72170; 80048; 82947; 83735; 85025; 88305; 88311; 97110; 97116; 97161; 97530; A9270; C1713; C1776; J0171; J0690; J0735; J1100; J1885; J2250; J2405; J2704; J2795; J3010; J7120

== ENCOUNTER 2020-09-02 17:25 | Inpatient (IN) | payer MEDICARE ==
[~2020-09-02] VITALS: Ht 180.3 cm; Wt 108.7 kg
[~2020-09-02 17:25] MED LIST changes: +ACET500 PO; +OXYC5 PO
[2020-09-02 19:25] LABS: BASOPHILS ABSOLUTE AUTO 0.05 K/mm3 (0.00-0.23); BASOPHILS PERCENT AUTO 0 % (0-2); EOSINOPHILS PERCENT AUTO 0 % (0-6); Hematocrit 38.4 % (37.0-53.0); Hemoglobin 11.8 g/dL (13.5-17.5); IMMATURE GRAN ABSOLUTE AUTO 0.11 K/mm3 (0.00-0.10); IMMATURE GRAN PERCENT AUTO 1 % (0-1); LYMPHOCYTES ABSOLUTE AUTO 1.13 K/mm3 (0.84-5.20); LYMPHOCYTES PERCENT AUTO 7 % (21-46); MONOCYTES PERCENT AUTO 6 % (4-13); Mean Corpuscular HGB 29.9 pg (26.0-34.0); Mean Corpuscular HGB Conc 30.7 g/dL (31.5-36.5); Mean Corpuscular Volume 98 fL (80-100); Mean Platelet Volume 9.8 fL (9.1-12.4); NEUTROPHILS ABSOLUTE AUTO 13.78 K/mm3 (1.96-9.15); NEUTROPHILS PERCENT AUTO 86 % (41-73); Platelet Count 345 K/mm3 (150-400); RDW Coefficient Variation 15.2 % (11.7-14.2); RDW Standard Deviation 53.1 fL (35.1-46.3); Red Blood Cell Count 3.94 M/mm3 (4.30-5.90); White Blood Cell Count 16.07 K/mm3 (4.00-11.30)
[2020-09-02 19:37] LABS: Anion Gap 6 mmol/L (6-16); Blood Urea Nitrogen 21 mg/dL (8-24); Bun/Creatinine Ratio 22.9 (12.0-20.0); CO2, Blood 23 mmol/L (21-32); Calcium, Blood 9.4 mg/dL (8.5-10.1); Chloride, Blood 109 mmol/L (98-108); Creatinine, Blood 0.92 mg/dL (0.60-1.20); Glomerular Filtration Rate >60 (60-); Glucose, Blood 145 mg/dL (70-99); Potassium, Blood 5.1 mmol/L (3.5-5.5); Sodium, Blood 138 mmol/L (136-145)
--- NOTE | 2020-09-02 21:59 | NUR ---
arrival to unit pt arrived to unit from er via [facility]. aa0x4. reports some sob on 4l currently, states 2-3 at baseline. reports 10/10 pain. will medicate per emar. l leg swollen, requires doppler tofind pulse. no bruising noted. currently restign in bed call light in reach. will continue to monitor pain and treat as ordered
--- NOTE | 2020-09-03 03:07 | NUR ---
PT HAD PREVIOUSLY REMOVED BIPAP, ALLOWED ME TO PLACE IT BACK ON. SATS AT 93% AT THIS TIME. PT CURRENTLY RESTING IN BED.
[2020-09-03 04:26] LABS: BASOPHILS ABSOLUTE AUTO 0.05 K/mm3 (0.00-0.23); BASOPHILS PERCENT AUTO 1 % (0-2); EOSINOPHILS ABSOLUTE AUTO 0.02 K/mm3 (0.00-0.68); EOSINOPHILS PERCENT AUTO 0 % (0-6); Hematocrit 34.3 % (37.0-53.0); Hemoglobin 10.4 g/dL (13.5-17.5); IMMATURE GRAN ABSOLUTE AUTO 0.06 K/mm3 (0.00-0.10); IMMATURE GRAN PERCENT AUTO 1 % (0-1); LYMPHOCYTES ABSOLUTE AUTO 2.43 K/mm3 (0.84-5.20); LYMPHOCYTES PERCENT AUTO 23 % (21-46); MONOCYTES ABSOLUTE AUTO 1.33 K/mm3 (0.16-1.47); MONOCYTES PERCENT AUTO 12 % (4-13); Mean Corpuscular HGB 29.4 pg (26.0-34.0); Mean Corpuscular HGB Conc 30.3 g/dL (31.5-36.5); Mean Corpuscular Volume 97 fL (80-100); Mean Platelet Volume 9.5 fL (9.1-12.4); NEUTROPHILS ABSOLUTE AUTO 6.89 K/mm3 (1.96-9.15); NEUTROPHILS PERCENT AUTO 64 % (41-73); Platelet Count 324 K/mm3 (150-400); RDW Coefficient Variation 15.1 % (11.7-14.2); RDW Standard Deviation 53.1 fL (35.1-46.3); Red Blood Cell Count 3.54 M/mm3 (4.30-5.90); White Blood Cell Count 10.78 K/mm3 (4.00-11.30)
[2020-09-03 04:50] LABS: Alanine Aminotransfer (ALT/SGP 13 U/L (12-78); Albumin, Blood 2.3 g/dL (3.4-5.0); Albumin/Globulin Ratio 0.6 (0.8-1.8); Alk Phos 94 U/L (50-136); Anion Gap 4 mmol/L (6-16); Aspartate Aminotrans (AST/SGOT 12 U/L (12-37); Bilirubin, Total 0.4 mg/dL (0.1-1.0); Blood Urea Nitrogen 19 mg/dL (8-24); Bun/Creatinine Ratio 21.8 (12.0-20.0); CO2, Blood 26 mmol/L (21-32); Calcium, Blood 8.6 mg/dL (8.5-10.1); Chloride, Blood 111 mmol/L (98-108); Creatinine, Blood 0.87 mg/dL (0.60-1.20); Glomerular Filtration Rate >60 (60-); Glucose, Blood 124 mg/dL (70-99); Potassium, Blood 4.1 mmol/L (3.5-5.5); Sodium, Blood 141 mmol/L (136-145); Total Protein, Blood 6.3 g/dL (6.4-8.2)
--- NOTE | 2020-09-03 05:33 | NUR ---
SHIFT SUMMARY L HIP FX. NO ACUTE CHANGES SINCE ARRIVAL TO UNIT. PT PAIN BETTER MANAGED SINCE ARRIVAL WITH 0.5 DILAUDID. PT STATES HE WAS ABLE TO SLEEP. PT WEARS 2-3L OXYGEN AT BASELINE, HAS REQUIRED 4-6L EVEN WITH CPAP IN PLACE TO MAINTAIN SATURATION ABOVE 88%. SPOKE WITH RESPIRATORY TO POSSIBLY ADJUST SETTINGS. PT DENIES SOB AT THIS TIME. REPORTS SOME WITH EXERTION. PT REMOVES CPAP AND OXYGEN IT "BOTHERS" HIM. SATS WILL DROP TO LOW 80'S AND TAKES APPROX 1 MINUTE TO RECOVER ONCE OXYGEN REAPPLIED. L LEG SIGNIFICANTLY SWOLLEN COMPARED TO RIGHT LEG REQUIRES DOPPLER TO AUSCULTATE PULSE. PLAN IS FOR ORTHO CONSULT IN THE AM.
[2020-09-03 10:21] LABS: Influenza A, PCR Negative (NEGATIVE); Influenza B, PCR Negative (NEGATIVE); Resp Syncytial Virus, PCR Negative (NEGATIVE); SARS-Cov-2 (COVID-19) PCR, MMC Negative (NEGATIVE)
--- NOTE | 2020-09-03 10:36 | NUR ---
RT IN TO SEE X 3 THIS AM. CPAP ADJUSTED. DR GARCIA IN. O2 BLEED TO CPAP DOWN TO 3L, BIOX 93% CONT TO MONITOR. PATIENT TOLERATED FENTANYL 25 MCG W/O DESATTING. DR IQBAL IN TO SEE THIS AM, PLAN FOR OC TO OR TODAY.
--- NOTE | 2020-09-03 12:00 | NUR ---
PATIENT HAS BEEN SLEEPING WITH CPAP IN PLACE W/ 3L O2. BIOX >90%. CONT TO MONITOR.
--- NOTE | 2020-09-03 13:40 | NUR ---
PATIENT TO DAY SURGERY AT THIS TIME.
--- NOTE | 2020-09-03 13:50 | NUR ---
PT ARRIVES WITH 2 IV'S. #1- 22 IN LH . INTACT AND FLUSHES WELL. #2- 18G RFA. INTACT AND FLUSHING WELL PT ARRIVES TO [facility] FROM 215. PT IS ALERT AND ORIENTED ON 4L NC. SOCORRO HOSE AND SCD ON RT LEG. IVF AND ABX STARTED ORDER. PT VSS . DENIES ADDITIONAL NEEDS AT THIS TIME.
--- NOTE | 2020-09-03 13:55 | NUR ---
Lungs clear T/O to Auscultation. Patient confirms NPO status and agrees with scheduled surgery. History, Chart, Medications and Allergies reviewed before start of procedure.
--- NOTE | 2020-09-03 14:49 | NUR ---
LH NO LONGER PATENT. REMOVED.
--- NOTE | 2020-09-03 19:05 | NUR ---
PATIENT TO ROOM FROM SURGERY AT 1850. ASSISTING PRIMARY RNANSLEY WITH CARE. PATIENT LETHARGIC. SPO2 AT 88% ON 6L O2 VIA OXYMIZER, INCREASED O2 TO 8L AND SPO2 INCREASED TO 92%. PATIENT ORIENTED TO NAME, BIRTHDAY, FAMILY, PLACE, AND MONTH BUT DISORIENTED TO YEAR. DRESSING TO L HIP C/D/I. REPORTED PAIN IN L LEG RATED 10/10, FENTANYL GIVEN. PATIENT RESTING WITH EYES CLOSED. SCDS AND SOCORRO HOSE ON. TOWEL ROLL IN BETWEEN LEGS. CALL LIGHT IN REACH. BED ALARM ON.
--- NOTE | 2020-09-03 22:27 | NUR ---
ASSISTING PRIMARY RN AKI WITH CARE. PATIENT AWAKE AND REQUESTING FLUIDS. TOLERATED WATER. REPORTED PAIN RATED 8/10 IN L HIP, MEDICATED WITH ROXICODONE AND TORADOL. EATING JELLO AND CRACKERS AT THIS TIME. VERBALIZED UNDERSTANDING OF ANTERIOR HIP PRECAUTIONS.
[2020-09-04 04:10] LABS: BASOPHILS ABSOLUTE AUTO 0.04 K/mm3 (0.00-0.23); BASOPHILS PERCENT AUTO 0 % (0-2); EOSINOPHILS ABSOLUTE AUTO 0.01 K/mm3 (0.00-0.68); EOSINOPHILS PERCENT AUTO 0 % (0-6); Hematocrit 30.3 % (37.0-53.0); Hemoglobin 8.9 g/dL (13.5-17.5); IMMATURE GRAN ABSOLUTE AUTO 0.06 K/mm3 (0.00-0.10); IMMATURE GRAN PERCENT AUTO 0 % (0-1); LYMPHOCYTES ABSOLUTE AUTO 2.51 K/mm3 (0.84-5.20); LYMPHOCYTES PERCENT AUTO 17 % (21-46); MONOCYTES ABSOLUTE AUTO 1.91 K/mm3 (0.16-1.47); MONOCYTES PERCENT AUTO 13 % (4-13); Mean Corpuscular HGB 29.5 pg (26.0-34.0); Mean Corpuscular HGB Conc 29.4 g/dL (31.5-36.5); Mean Corpuscular Volume 100 fL (80-100); Mean Platelet Volume 9.4 fL (9.1-12.4); NEUTROPHILS ABSOLUTE AUTO 10.29 K/mm3 (1.96-9.15); NEUTROPHILS PERCENT AUTO 69 % (41-73); Platelet Count 307 K/mm3 (150-400); RDW Coefficient Variation 15.2 % (11.7-14.2); Red Blood Cell Count 3.02 M/mm3 (4.30-5.90); White Blood Cell Count 14.82 K/mm3 (4.00-11.30)
[2020-09-04 04:26] LABS: Anion Gap 4 mmol/L (6-16); Blood Urea Nitrogen 15 mg/dL (8-24); CO2, Blood 27 mmol/L (21-32); Calcium, Blood 8.2 mg/dL (8.5-10.1); Chloride, Blood 110 mmol/L (98-108); Glomerular Filtration Rate >60 (60-); Glucose, Blood 127 mg/dL (70-99); Magnesium, Blood 2.2 mg/dL (1.6-2.4); Potassium, Blood 4.4 mmol/L (3.5-5.5); Sodium, Blood 141 mmol/L (136-145)
--- NOTE | 2020-09-04 06:41 | NUR ---
SHIFT SUMMARY PT A&OX4. COOPERATIVE. SP02>92% ON 5L OXYMIZER. PT DID NOT WANT TO WEAR CPAP TO SLEEP THIS SHIFT. TELEMETRY READ 100% PACED, HR 60'S. PT WEARING SOCORRO HOSE AND BILAT CALF SCD'S. PT L HIP DRESSING C/D/I T/O SHIFT. PT HAD 2 INCONTINENT VOIDS AND 1 VOID IN URINAL. 3 STAFF TO CHANGE PT D/T ANTERIOR HIP PRECAUTIONS. C/D ATTENDS IN PLACE. PT WAS ABLE TO EAT JELLO AND DRINK WATER WITH NO ISSUES. PT C/O OF L HIP PAIN, MEDICATED PER EMAR. PT R AC IV INFILTRATED, REMOVED AND WRAPPED IN COBAN. NEW IV STARTED, FLUIDS INFUSING PER EMAR. PT SLEPT MAJORITY OF NIGHT. CALL LIGHT IN REACH. WILL CONTINUE TO MONITOR.
--- NOTE | 2020-09-04 10:43 | NUR ---
PT STATUS CHANGED TO SURGICAL WITH TELE. PT TRANSFERRED TO RM 215. NO ACUTE CHANGE FOR THE SHIFT, PT WAS NOTED TO DESAT ON O2 TO LOW 80'S ON 5L OF O3 WHEN SLEEPING BUT COMES BACK UP WHEN PT WAKES UP MAINTAINING ABOVE 90%. PT WAS PUT ON CPAP WITH 5L O2 BLEED SATS ABOVE 95%. PT C/O 8/10 PAIN ON LEFT HIP 50MCG OF FENTANYL GIVEN AND WAS EFFECTIVE ICE COOLING MACHINE APPLIED WELL. DR IQBAL WAS IN THE ROOM THIS AM, BOTTOM DRESSING ON LEFT HIP WAS CHANGED, ROSARIO REMAINED INTACT NO REDNESS/SWELLING NOTED, SCANT DRAINAGE PRESENT ON THE OLD DRESSING. PT USES OVERHEAD TRAPEZE TO HELP WITH BED MOBILITY TOWEL ROLL IN BETWEEN LEGS, PRECAUTIONS FOLLOWED, PT EDUCATED WELL. PT TOLERATED BREAKFAST THIS AM, TOOK MEDS WHOLE WITH WATER. REPORT GIVEN TO UMU JUÁREZ, ALL BELONGINGS SENT WITH PT, ACCOMPANIED BY PCT AND CN FOR TRANSFER.
--- NOTE | 2020-09-04 19:51 | NUR ---
SHIFT SUMMARY POD1 L HIP FX REPAIR, A/O X4, VSS, ON 6L O2 TO KEEP O2 SAT AT 96%. PT USES CPAP WHEN SLEEPING, BREATHES THROUGH HIS MOUTH AND DE-SATS W/O CPAP. ENCOURAGED PT TO BREATH THROUGH HIS NOSE WHILE AWAKE TO TAKE ADVANTAGE OF NC. PAIN CONTROLLED PER EMAR, TOLERATING PO, INCONTINENT OF BOWEL/BLADDER, NWB AT THIS TIME. CALL LIGHT IN REACH, REPORT GIVEN TO GERMAN JUÁREZ.
[2020-09-05 04:52] LABS: BASOPHILS ABSOLUTE AUTO 0.03 K/mm3 (0.00-0.23); BASOPHILS PERCENT AUTO 0 % (0-2); EOSINOPHILS ABSOLUTE AUTO 0.01 K/mm3 (0.00-0.68); EOSINOPHILS PERCENT AUTO 0 % (0-6); Hematocrit 27.6 % (37.0-53.0); Hemoglobin 8.3 g/dL (13.5-17.5); IMMATURE GRAN ABSOLUTE AUTO 0.07 K/mm3 (0.00-0.10); IMMATURE GRAN PERCENT AUTO 1 % (0-1); LYMPHOCYTES ABSOLUTE AUTO 2.29 K/mm3 (0.84-5.20); LYMPHOCYTES PERCENT AUTO 16 % (21-46); MONOCYTES ABSOLUTE AUTO 2.11 K/mm3 (0.16-1.47); MONOCYTES PERCENT AUTO 15 % (4-13); Mean Corpuscular HGB 29.2 pg (26.0-34.0); Mean Corpuscular HGB Conc 30.1 g/dL (31.5-36.5); Mean Corpuscular Volume 97 fL (80-100); Mean Platelet Volume 9.4 fL (9.1-12.4); NEUTROPHILS ABSOLUTE AUTO 9.61 K/mm3 (1.96-9.15); NEUTROPHILS PERCENT AUTO 68 % (41-73); Platelet Count 315 K/mm3 (150-400); RDW Coefficient Variation 15.2 % (11.7-14.2); RDW Standard Deviation 53.6 fL (35.1-46.3); Red Blood Cell Count 2.84 M/mm3 (4.30-5.90); White Blood Cell Count 14.12 K/mm3 (4.00-11.30)
--- NOTE | 2020-09-05 05:01 | NUR ---
SHIFT SUMMARY PT HAS BEEN A/O. USING CALL LIGHT. ATTENS IN PLACE AND CHANGED PRN FOR INCONTINENCE. PT WAS REMOVING CPAP DURING THE NIGHT, AND HAS BEEN USING 6L O2 NC TO MAINTAIN O2 SAT ABOVE 92%. BIOX IN PLACE. PT TOLERATING PO INTAKE. DRESSING TO HIP CDI. TELE IN PLACE OVERNIGHT. PT RESTING WITH CALL LIGHT IN REACH AT THIS TIME.
--- NOTE | 2020-09-05 15:25 | NUR ---
UPDATED PATIENTS ON HIS CONDITION. PT SAID SHE WOULD [facility].
--- NOTE | 2020-09-05 16:10 | NUR ---
SHIFT SUMMARY ORIF L POD2, A/O X4, VSS, TOLERATING PO, VOIDING INCONTINENT BUT ENCOURAGING URINAL, BOWEL CARE INCREASED TO FACILITATE BM (SEE EMAR), DRESSING CHANGED TODAY, PAIN WELL CONTROLLED PER EMAR, INCREASED PAIN W/ MOVEMENT. PT ASKED IF HE COULD [facility] TO [facility], ADDED NOTE IN PT CHART. CALL LIGHT IN REACH, WILL CONTINUE TO MONITOR AND REPORT TO ONCOMING NOC RN.
--- NOTE | 2020-09-06 05:14 | NUR ---
SHIFT SUMMARY POD#3. AAOX4. DISCOMFORT DECREASED WITH PO PAIN MEDICATION + 25mcg FENTANYL X1 FOR BREAKTHROUGH. NO NAUSEA/EMESIS. DRESSING TO LEFT HIP C/D/I. PPP, DENIES ACUTE CHANGE IN SENSATION, MOVES TOES WELL BILATERALLY. TURN Q2H OR PT IS AGREEABLE TO. INCONTINENT IN ATTENDS AT TIMES. 5L VIA NC WHILE PT IS AWAKE, CPAP WITH 6L O2 WHILE SLEEPING. IVF PER ORDERS. PT RESTED WELL T/O NIGHT. CURRENTLY RESTING IN BED WITH CALL LIGHT IN REACH.
--- NOTE | 2020-09-06 16:53 | NUR ---
SHIFT SUMMARY POD3 L HIP ORIF, A/O X4, VSS, TOLERATING PO, INCONTINENT OF BLADDER BUT WILL CALL SOMETIMES TO USE URINAL, INCREASED BOWEL CARE STILL IN USE TO HELP FACILITATE A BM. DID WELL W/ PT TODAY, DENIES NEED FOR PAIN MEDS AFTER. DOING BETTER WITH USING O2 AND BREATHING THROUGH THE NOSE WHEN USING THE NC. CALL LIGHT IN REACH, WILL CONTINUE TO MONITOR AND REPORT TO ONCOMING NOC RN.
--- NOTE | 2020-09-07 03:12 | NUR ---
SHIFT SUMMARY: POD 4 LEFT HIP REPAIR PT IS ALERT AND ORIENTED X4 WHILE AWAKE. HE HAS BEEN SLEEPING PEACEFULLY DURING THE SHIFT BUT IS EASILY AROUSABLE. HIS VS ARE WNL BUT IS ON 5L OXYGEN NC. HIS BASELINE IS TO WEAR OXYGEN AT HOME. BIOX IS IN PLACE AND DEEP BREATHS ARE ENCOURAGED. HE CAN BE INCONTINENT OF BLADDER BUT WILL CALL SOMETIMES TO USE URNAL. ENCOURAGING FLUIDS TO INCREASE BOWEL CARE. PAIN IS MANAGED PER EMAR ORDERS. THE PLAN IS TO HAVE OT/PT EVAL FOR [facility] DISCHARGE TO [place] SINCE HE REFUSES TO GO TO A SNF. IT IS ALSO APART OF THE PLAN TO CONTINUE PAIN CONTROL.
[2020-09-07 06:00] LABS: BASOPHILS ABSOLUTE AUTO 0.04 K/mm3 (0.00-0.23); BASOPHILS PERCENT AUTO 0 % (0-2); EOSINOPHILS ABSOLUTE AUTO 0.11 K/mm3 (0.00-0.68); EOSINOPHILS PERCENT AUTO 1 % (0-6); Hematocrit 25.9 % (37.0-53.0); Hemoglobin 7.7 g/dL (13.5-17.5); IMMATURE GRAN ABSOLUTE AUTO 0.04 K/mm3 (0.00-0.10); IMMATURE GRAN PERCENT AUTO 0 % (0-1); LYMPHOCYTES ABSOLUTE AUTO 2.16 K/mm3 (0.84-5.20); LYMPHOCYTES PERCENT AUTO 23 % (21-46); MONOCYTES ABSOLUTE AUTO 1.17 K/mm3 (0.16-1.47); MONOCYTES PERCENT AUTO 13 % (4-13); Mean Corpuscular HGB 28.9 pg (26.0-34.0); Mean Corpuscular HGB Conc 29.7 g/dL (31.5-36.5); Mean Corpuscular Volume 97 fL (80-100); Mean Platelet Volume 9.9 fL (9.1-12.4); NEUTROPHILS ABSOLUTE AUTO 5.77 K/mm3 (1.96-9.15); NEUTROPHILS PERCENT AUTO 62 % (41-73); Platelet Count 432 K/mm3 (150-400); RDW Coefficient Variation 15.3 % (11.7-14.2); RDW Standard Deviation 54.9 fL (35.1-46.3); Red Blood Cell Count 2.66 M/mm3 (4.30-5.90); White Blood Cell Count 9.29 K/mm3 (4.00-11.30)
[2020-09-07 06:16] LABS: Alanine Aminotransfer (ALT/SGP 28 U/L (12-78); Albumin, Blood 1.7 g/dL (3.4-5.0); Albumin/Globulin Ratio 0.4 (0.8-1.8); Alk Phos 92 U/L (50-136); Anion Gap 5 mmol/L (6-16); Aspartate Aminotrans (AST/SGOT 37 U/L (12-37); Bilirubin, Total 0.4 mg/dL (0.1-1.0); Blood Urea Nitrogen 18 mg/dL (8-24); CO2, Blood 26 mmol/L (21-32); Calcium, Blood 8.1 mg/dL (8.5-10.1); Chloride, Blood 110 mmol/L (98-108); Globulin, Blood 4.1 g/dL (2.2-4.0); Glomerular Filtration Rate >60 (60-); Glucose, Blood 123 mg/dL (70-99); Potassium, Blood 4.5 mmol/L (3.5-5.5); Sodium, Blood 141 mmol/L (136-145); Total Protein, Blood 5.8 g/dL (6.4-8.2)
--- NOTE | 2020-09-07 09:42 | NUR ---
09/07/20 0942 Sakina Dover VERIFICATIONS: EDIT CHART.
--- NOTE | 2020-09-07 18:11 | NUR ---
SHIFT SUMMARY POD4 ORIF, A/O X4, VSS, TOLERATING PO, VOIDING IN URINAL W/ DEPENDS IN PLACE, SMALL BM TODAY, 1 UNIT PRBC INFUSED TODAY, PT TOLERATED WELL, PLAN IS TO DC TOMORROW. CALL LIGHT IN REACH, WILL CONTINUE TO MONITOR AND REPORT TO ONCOMING NOC RN.
[2020-09-08 04:44] LABS: BASOPHILS ABSOLUTE AUTO 0.05 K/mm3 (0.00-0.23); BASOPHILS PERCENT AUTO 1 % (0-2); EOSINOPHILS ABSOLUTE AUTO 0.13 K/mm3 (0.00-0.68); EOSINOPHILS PERCENT AUTO 1 % (0-6); Hematocrit 29.9 % (37.0-53.0); Hemoglobin 9.2 g/dL (13.5-17.5); IMMATURE GRAN ABSOLUTE AUTO 0.04 K/mm3 (0.00-0.10); IMMATURE GRAN PERCENT AUTO 0 % (0-1); LYMPHOCYTES ABSOLUTE AUTO 1.71 K/mm3 (0.84-5.20); LYMPHOCYTES PERCENT AUTO 18 % (21-46); MONOCYTES ABSOLUTE AUTO 1.25 K/mm3 (0.16-1.47); MONOCYTES PERCENT AUTO 13 % (4-13); Mean Corpuscular HGB 28.6 pg (26.0-34.0); Mean Corpuscular HGB Conc 30.8 g/dL (31.5-36.5); Mean Corpuscular Volume 93 fL (80-100); Mean Platelet Volume 9.5 fL (9.1-12.4); NEUTROPHILS ABSOLUTE AUTO 6.19 K/mm3 (1.96-9.15); NEUTROPHILS PERCENT AUTO 66 % (41-73); Platelet Count 470 K/mm3 (150-400); RDW Coefficient Variation 14.9 % (11.7-14.2); RDW Standard Deviation 50.9 fL (35.1-46.3); Red Blood Cell Count 3.22 M/mm3 (4.30-5.90); White Blood Cell Count 9.37 K/mm3 (4.00-11.30)
--- NOTE | 2020-09-08 05:03 | NUR ---
SHIFT SUMMARY POD 5 ORIF L HIP AA0X4, PT DENIES PAIN DURING SHIFT. DRESSING CHANGED ONCE MODERATE AMOUNT SANGUINOUS DRAINAGE. LEFT LEG SWOLLEN. PT REPOSITIONS WELL IN BED. REFUSED TO WEAR CPAP DURING SHIFT. WOULD REMOVE OXYGEN OCCASIONALLY AND DESAT WITH MOVEMENT. ABLE TO RECOVER QUICKLY ONCE OXYGEN REAPPLIED. PLAN IS TO [facility] TODAY.
--- NOTE | 2020-09-08 08:50 | NUR ---
THERAPY IN ROOM.
--- NOTE | 2020-09-08 10:25 | NUR ---
DR GARCIA RECENTLY HERE TO SEE PT, DISCUSSED PT'S STATUS.
[2020-09-08 12:04] LABS: Influenza A, PCR Negative (NEGATIVE); Influenza B, PCR Negative (NEGATIVE); Resp Syncytial Virus, PCR Negative (NEGATIVE); SARS-Cov-2 (COVID-19) PCR, MMC Negative (NEGATIVE)
--- NOTE | 2020-09-08 13:39 | NUR ---
THERAPY IN ROOM.
--- NOTE | 2020-09-08 16:26 | NUR ---
DISCHARGE: PT OUT BY TRANSPORT WITH BELONGINGS, PAPERWORK INCLUDING SCRIPT, WELL DRESSINGS. PT IV OUT WNL. PT BEEN EATING AND DRINKING, VOIDING, AND HAD RECENT BM. FAST FOOD SERVER ASSISTED WITH DISCHARGE. PT TO W/C WITH MULT ASSIST. PT HAVING 02 ON WHILE IN W/C. REPORT GIVEN TO PONCHO AT OR. FAST FOOD SERVER REPORTED THAT THEY WOULD NOTIFY FAMILY.
== END 2020-09-08 16:26 | DRG 481 ==
LOC: ER 17:25 → SURS 17:26 → PCU 09-03 18:02 → SURS 09-04 10:34
PROVIDERS: Emergency Medicine; Internal Medicine; Orthopaedic Surgery; ADMIT Internal Medicine
PROC: 30233N1 Transfusion of Nonautologous Red Blood Cells into Peripheral Vein, Percutaneous Approach (ICD-10-PCS; 2020-09-03)
PROC: 0QS704Z Reposition Left Upper Femur with Internal Fixation Device, Open Approach (ICD-10-PCS; principal; 2020-09-03 14:45)
DX: S72.92XA Unspecified fracture of left femur, initial encounter for closed fracture (principal); D62 Acute posthemorrhagic anemia; I48.20 Chronic atrial fibrillation, unspecified; M97.02XA Periprosthetic fracture around internal prosthetic left hip joint, initial encounter; J96.11 Chronic respiratory failure with hypoxia; E11.9 Type 2 diabetes mellitus without complications; E78.5 Hyperlipidemia, unspecified; G47.33 Obstructive sleep apnea (adult) (pediatric); I10 Essential (primary) hypertension; J43.9 Emphysema, unspecified; J84.10 Pulmonary fibrosis, unspecified; M10.9 Gout, unspecified; W18.30XA Fall on same level, unspecified, initial encounter; Z87.891 Personal history of nicotine dependence; Z99.81 Dependence on supplemental oxygen; K22.70 Barrett's esophagus without dysplasia
CPT/HCPCS: 0241U; 36415; 36430; 71045; 73502; 80048; 80053; 82947; 83735; 85025; 86850; 86900; 86901; 86923; 94640; 94660; 94760; 94762; 96374-59; 96376-59; 97110; 97161; 97165; 97530; 99285-25; A9270-GY; J1100; J1170; J1885; J1940; J2370; J2405; J2704; J3010; J3370; J7030; J7050; J7120; P9016

== ENCOUNTER 2021-02-19 11:44 | Emergency (ER) | payer MEDICARE ==
[~2021-02-19] VITALS: Ht 177.8 cm; Wt 108.9 kg
[~2021-02-19 11:44] MED LIST changes: -STIOLTO RESPIMAT4 G1 INH
[2021-02-19] MEDS ORDERED: MASOPHEN500 M2 PO (12:03)
[2021-02-19] MEDS ORDERED: LIDO700A20 TOP (12:57)
[2021-02-19] MEDS ORDERED: OXYC5 PO (12:57)
== END 2021-02-19 14:01 | disposition home or self-care (01) ==
LOC: ER 11:44
DX: M48.56XA Collapsed vertebra, not elsewhere classified, lumbar region, initial encounter for fracture (principal); E78.5 Hyperlipidemia, unspecified; E11.9 Type 2 diabetes mellitus without complications; I10 Essential (primary) hypertension; Z88.0 Allergy status to penicillin; Z88.8 Allergy status to other drugs, medicaments and biological substances; Z79.01 Long term (current) use of anticoagulants; Z79.899 Other long term (current) drug therapy
CPT/HCPCS: 72100; 99283-25; A9270

== ENCOUNTER 2021-02-21 11:46 | Inpatient (IN) | payer MEDICARE ==
[~2021-02-21] VITALS: Ht 172.7 cm; Wt 104.2 kg
[~2021-02-21 11:46] MED LIST changes: +LIDO700A20 TOP; +MASOPHEN500 M2 PO
[2021-02-21 12:21] LABS: BASOPHILS ABSOLUTE AUTO 0.05 K/mm3 (0.00-0.23); BASOPHILS PERCENT AUTO 0 % (0-2); EOSINOPHILS ABSOLUTE AUTO 0.02 K/mm3 (0.00-0.68); EOSINOPHILS PERCENT AUTO 0 % (0-6); Hematocrit 48.8 % (37.0-53.0); Hemoglobin 15.6 g/dL (13.5-17.5); IMMATURE GRAN ABSOLUTE AUTO 0.06 K/mm3 (0.00-0.10); IMMATURE GRAN PERCENT AUTO 1 % (0-1); LYMPHOCYTES ABSOLUTE AUTO 3.62 K/mm3 (0.84-5.20); LYMPHOCYTES PERCENT AUTO 28 % (21-46); MONOCYTES ABSOLUTE AUTO 1.24 K/mm3 (0.16-1.47); MONOCYTES PERCENT AUTO 10 % (4-13); Mean Corpuscular HGB 31.6 pg (26.0-34.0); Mean Corpuscular Volume 99 fL (80-100); Mean Platelet Volume 10.3 fL (9.1-12.4); NEUTROPHILS ABSOLUTE AUTO 8.07 K/mm3 (1.96-9.15); NEUTROPHILS PERCENT AUTO 62 % (41-73); Platelet Count 268 K/mm3 (150-400); RDW Coefficient Variation 14.3 % (11.7-14.2); RDW Standard Deviation 51.1 fL (35.1-46.3); Red Blood Cell Count 4.94 M/mm3 (4.30-5.90); White Blood Cell Count 13.06 K/mm3 (4.00-11.30)
[2021-02-21 12:33] LABS: Alanine Aminotransfer (ALT/SGP 21 U/L (12-78); Albumin, Blood 3.1 g/dL (3.4-5.0); Albumin/Globulin Ratio 0.6 (0.8-1.8); Alk Phos 129 U/L (50-136); Anion Gap 5 mmol/L (6-16); Aspartate Aminotrans (AST/SGOT 16 U/L (12-37); Bilirubin, Total 0.6 mg/dL (0.1-1.0); Blood Urea Nitrogen 25 mg/dL (8-24); Bun/Creatinine Ratio 22.9 (12.0-20.0); CO2, Blood 25 mmol/L (21-32); Calcium, Blood 9.1 mg/dL (8.5-10.1); Chloride, Blood 110 mmol/L (98-108); Creatinine, Blood 1.09 mg/dL (0.60-1.20); Globulin, Blood 5.3 g/dL (2.2-4.0); Glomerular Filtration Rate >60 (60-); Glucose, Blood 131 mg/dL (70-99); Sodium, Blood 140 mmol/L (136-145); Total Protein, Blood 8.4 g/dL (6.4-8.2); Troponin I 0.028 ng/mL (0.000-0.040)
[2021-02-21] MEDS ORDERED: ALBU90OI INH (13:16)
[2021-02-21] MEDS ORDERED: ACET500 PO (13:16)
[2021-02-21] MEDS ORDERED: ATOR20 PO (13:16)
[2021-02-21] MEDS ORDERED: ASCO500 PO (13:16)
[2021-02-21] MEDS ORDERED: DICLOFENAC SOD100 G1 TOP (13:17)
[2021-02-21] MEDS ORDERED: GABA100 PO (13:17)
[2021-02-21] MEDS ORDERED: Colace100 MG PO (13:17)
[2021-02-21] MEDS ORDERED: FERROUS GLUCON324 M2 PO (13:17)
[2021-02-21] MEDS ORDERED: OMEP20ER PO (13:19)
[2021-02-21] MEDS ORDERED: NARCAN4 M1 (13:19)
[2021-02-21] MEDS ORDERED: LISINOPRIL-HCT1 EACH PO (13:19)
[2021-02-21] MEDS ORDERED: XARELTO20 MG PO (13:19)
[2021-02-21 13:42] LABS: Bicarbonate Venous 24.1 mmol/L (24.0-30.0); PO2 Venous 37.5 mmHg (38-42); pH Blood Venous 7.37 (7.34-7.37)
[2021-02-21] MEDS ORDERED: STIOLTO RESPIMAT4 G1 INH (15:15)
[2021-02-21] MEDS ORDERED: Vitamin D2000 UNIT PO (15:16)
[2021-02-21] MEDS ORDERED: CALCIUM CITRAT200 MG PO (15:17)
[2021-02-21] MEDS ORDERED: ALBU2.5V5 INH (15:19)
[2021-02-21] MEDS ORDERED: MIRALAX17 G7 PO (15:20)
[2021-02-21 19:03] LABS: SARS-Cov-2 (COVID-19) PCR, MMC NEGATIVE (NEGATIVE)
[2021-02-22 06:00] LABS: Albumin, Blood 2.6 g/dL (3.4-5.0); Albumin/Globulin Ratio 0.6 (0.8-1.8); Bilirubin, Total 0.5 mg/dL (0.1-1.0); Bun/Creatinine Ratio 25.8 (12.0-20.0); Calcium, Blood 8.5 mg/dL (8.5-10.1); Creatinine, Blood 1.24 mg/dL (0.60-1.20); Globulin, Blood 4.4 g/dL (2.2-4.0); Magnesium, Blood 2.3 mg/dL (1.6-2.4); Potassium, Blood 3.8 mmol/L (3.5-5.5)
--- NOTE | 2021-02-22 06:12 | NUR ---
SHIFT SUMMARY PATIENT ALERT AND ORIENTED. MEDICATED PER EMAR FOR PAIN. NO COMPLAINTS OF CHEST PAIN OR SHORTNESS OF BREATH. PATIENT SLEPT WELL OVERNIGHT AND HAD MINIMAL NEEDS. NO ACUTE ISSUES NOTED. IVS PATENT AND FLUSHED. BED IN LOWEST POSITION WITH WHEELS LOCKED AND ALARM ON. CALL LIGHT WITHIN REACH. REPORT GIVEN TO ONCOMING RN.
--- NOTE | 2021-02-22 16:18 | NUR ---
CARE COORDINATION REFERRAL - ADMIT: 02/21/21 DISCHARGE: DX: HYPOXIA CC: KWILCOX RITA CALL: RESIDENCE: HOME WITH SPOUSE CAREGIVER: KAMILAH [id number], CHILD, SOTERO GREEN, SPOUSE / PARTNER, DX: COPD, AFIB, AFLUTTER, HTN, DM-TYPE 2, SEE LIST DME: CPAP, HOSPITAL BED, DM SUPPLIES, O2 AND EQUIPMENT, SEE LIST CCM: REFERRAL- 2018 HOME HEALTH: NONE SUMMARY: ADMIT: 02/21/21 02/22/21- PER CHART REVIEW WITH DR. WEBER, PT HAS L4 COMPRESSION FRACTURE AND AT DISCHARGE WILL NEED SNF. NO PLAN FOR D/C AT THIS TIME. -BARTOLOME
--- NOTE | 2021-02-22 19:34 | NUR ---
SHIFT SUMMARY: NO ACUTE CHANGES TO REPORT THIS SHIFT. PT A&O; CALM AND COOPERATIVE WITH CARE. O2 @ 9L OXYMIZER. BACK PAIN R/T L4 COMP FX; LIDOCAINE TOP TO LOWER BACK. PT & OT FOLLOWING. REPORT GIVEN TO ONCOMING RN.
--- NOTE | 2021-02-23 03:00 | NUR ---
ASSUMPTION OF CARE REPORT RECEIVED FROM VANESSA JUÁREZ AT 0232. PATIENT TRANSFERED TO ICU AT 0245 4 PERSON ASSIST TO BED. PATIENT ON HI-FLOW 15L, TACHYPNEIC WITH SATS AT 90%. LASIX WAS PREVIOUSLY ADMINISTERED. PATIENT WITH IMMEDIATE AND FREQUENT URINE OUTPUT. PATIENT A/O, STATING PAIN 8/10 IN LOWER BACK. RT TO BEDSIDE TO DRAW ABG, RADIOLOGY AT BEDSIDE FOR CXR. LAB ALSO TO BEDSIDE TO DRAW AM LABS. PATIENT TOLERATING CURRENT ACTIVITY. WILL REVIEW ORDERS AND TREAT PRESCRIBED.
--- NOTE | 2021-02-23 03:00 | NUR ---
PT TRANSFERED TO ICU3 AT THIS TIME D/T DECLINE IN RESPIRATORY STATUS. PRIOR TO TRANSFER PT WAS INCREASED FROM 9LO2 VIA OXYMIZER TO 13LO2 VIA HIFLO MAINTAINING A SATURATION OF 87-90%. RESPIRATORY RATE 32. LUNG SOUNDS CLEAR AND DIMINISHED THROUGHOUT. LOW GRADE TEMP OF 99.5. ALL OTHER VS WNL. PT APPEARED DIAPHORETIC AND DUSKY. RT IN ROOM TO ASSESS AND PT GIVEN SECOND DUONEB TX. DR. MONTGOMERY NOTIFIED AT APPROX 0210. DR. MONTGOMERY IN ROOM AT APPROX 0225. ORDER TO GIVE IV LASIX, STAT CXR, BNP AND ABG. REPORT GIVEN TO OLY AT APPROX 0236.
[2021-02-23 03:15] LABS: PCO2 Arterial 40.6 mmHg (35-45); PO2 Arterial 55.5 mmHg (80-100); pH Blood Arterial 7.42 (7.35-7.45)
[2021-02-23 03:42] LABS: BASOPHILS ABSOLUTE AUTO 0.06 K/mm3 (0.00-0.23); BASOPHILS PERCENT AUTO 1 % (0-2); EOSINOPHILS ABSOLUTE AUTO 0.23 K/mm3 (0.00-0.68); EOSINOPHILS PERCENT AUTO 2 % (0-6); Hematocrit 49.4 % (37.0-53.0); Hemoglobin 15.1 g/dL (13.5-17.5); IMMATURE GRAN ABSOLUTE AUTO 0.05 K/mm3 (0.00-0.10); IMMATURE GRAN PERCENT AUTO 0 % (0-1); LYMPHOCYTES ABSOLUTE AUTO 2.47 K/mm3 (0.84-5.20); LYMPHOCYTES PERCENT AUTO 20 % (21-46); MONOCYTES ABSOLUTE AUTO 1.42 K/mm3 (0.16-1.47); MONOCYTES PERCENT AUTO 11 % (4-13); Mean Corpuscular HGB 31.4 pg (26.0-34.0); Mean Corpuscular HGB Conc 30.6 g/dL (31.5-36.5); Mean Corpuscular Volume 103 fL (80-100); Mean Platelet Volume 10.1 fL (9.1-12.4); NEUTROPHILS ABSOLUTE AUTO 8.24 K/mm3 (1.96-9.15); NEUTROPHILS PERCENT AUTO 66 % (41-73); Platelet Count 240 K/mm3 (150-400); RDW Coefficient Variation 13.9 % (11.7-14.2); RDW Standard Deviation 52.9 fL (35.1-46.3); Red Blood Cell Count 4.81 M/mm3 (4.30-5.90); White Blood Cell Count 12.47 K/mm3 (4.00-11.30)
[2021-02-23 03:59] LABS: Anion Gap 3 mmol/L (6-16); Blood Urea Nitrogen 32 mg/dL (8-24); Bun/Creatinine Ratio 30.2 (12.0-20.0); CO2, Blood 28 mmol/L (21-32); Chloride, Blood 108 mmol/L (98-108); Creatinine, Blood 1.06 mg/dL (0.60-1.20); Glomerular Filtration Rate >60 (60-); Glucose, Blood 140 mg/dL (70-99); Potassium, Blood 4.7 mmol/L (3.5-5.5); Sodium, Blood 139 mmol/L (136-145)
--- NOTE | 2021-02-23 06:45 | NUR ---
SHIFT SUMMARY PATIENT TRANSFERRED FROM [facility] FOR INCREASED OXYGEN NEEDS. OXYGEN IS AT 15L HI-FLOW. TREATED FOR PAIN UPON ARRIVAL, ABG, CXR, AND LABS COMPLETED ORDERED. PATIENT RESTING, EASILY AWAKENS. STATED PAIN MEDICATION WAS EFFECTIVE AND ALLOWED HIM TO REST COMFORTABLY. USES CALL LIGHT TO USE URINAL AFTER LASIX WAS GIVEN. WILL GIVE REPORT TO ONCOMING RN.
--- NOTE | 2021-02-23 08:30 | NUR ---
Patient was resting at start of shift and ECHO awakened him. He stated that he was having lower back pain and is very uncomfortable. Medicated per mar for am meds and pain meds with apple juice. CBG 109, no coverage needed. He is on 15L high flow NC and sats 88-94% depending on sleep, he is a mouth breather. He has 2-20ga IV's RFA flushed and SL'd.
--- NOTE | 2021-02-23 08:51 | NUR ---
Echocardiogram completed.
--- NOTE | 2021-02-23 12:02 | NUR ---
Patient worked with PT and OT and very tired. He remains on 15 L O2 via HF NC and sats 80-90%. He is up eating lunch currently and medicated for lower back pain by request. VSS. See EMR. Patient denies any other current needs.
--- NOTE | 2021-02-23 13:42 | NUR ---
02/23/21- per chart review with Dr. Rasmussen, pt's pneumonia has gotten worse and most likely will be staying through the weekend/first part of next week. -red
--- NOTE | 2021-02-23 13:44 | NUR ---
Patient sleeping, no significant changes. He remains on 15 L O2 HF NC and sats 92%. Therapy want to come work with him again if not too tired. Dr Coppola here with patient now.
--- NOTE | 2021-02-23 16:39 | NUR ---
Patient continues to rest and awakens easily with care. he is being moved to PCU when room is clean. VSS, See EMR. He remains on 15L O2 via HF NC. He tolerated afternoon meds with water. He just finished working with OT.
--- NOTE | 2021-02-23 16:49 | NUR ---
Gave report to NUTRITION SERVICES MANAGER and took all belongings from to to PCU 2.
--- NOTE | 2021-02-23 18:41 | NUR ---
SHIFT SUMMARY RADHA ARRIVED FROM ICU AROUND 1720. SATS WITH TURNING AND CHANGING WERE IN 70S, BUT ENCOURAGED DEEP BREATHING, PUT O2 PROBE ON HIS EAR (VERY DIFFICULT TO GET READING ON COLD FINGERS), HE POPPED BACK UP TO 90% ON THE SAME 15L HI-FLOW NC. CONTINENT URINE UPON ARRIVAL. PER EXECUTIVE CANDIDATE DEVELOPER, PT IN NSR AT 78. SUPERVISION WITH DINNER, HE DID WELL, REQUIRES A LOT OF ENCOURAGEMENT TO SIT UP FOR ASPIRATION PRECAUTIONS DUE TO BACK PAIN. CALL LIGHT IN REACH, WCTM
[2021-02-24 04:13] LABS: BASOPHILS ABSOLUTE AUTO 0.05 K/mm3 (0.00-0.23); BASOPHILS PERCENT AUTO 0 % (0-2); EOSINOPHILS ABSOLUTE AUTO 0.24 K/mm3 (0.00-0.68); EOSINOPHILS PERCENT AUTO 2 % (0-6); Hematocrit 43.9 % (37.0-53.0); Hemoglobin 13.9 g/dL (13.5-17.5); IMMATURE GRAN ABSOLUTE AUTO 0.05 K/mm3 (0.00-0.10); IMMATURE GRAN PERCENT AUTO 0 % (0-1); LYMPHOCYTES PERCENT AUTO 23 % (21-46); MONOCYTES ABSOLUTE AUTO 1.58 K/mm3 (0.16-1.47); MONOCYTES PERCENT AUTO 13 % (4-13); Mean Corpuscular HGB 31.4 pg (26.0-34.0); Mean Corpuscular HGB Conc 31.7 g/dL (31.5-36.5); Mean Corpuscular Volume 99 fL (80-100); Mean Platelet Volume 10.4 fL (9.1-12.4); NEUTROPHILS ABSOLUTE AUTO 7.38 K/mm3 (1.96-9.15); NEUTROPHILS PERCENT AUTO 62 % (41-73); Platelet Count 268 K/mm3 (150-400); RDW Coefficient Variation 14.1 % (11.7-14.2); RDW Standard Deviation 50.9 fL (35.1-46.3); Red Blood Cell Count 4.42 M/mm3 (4.30-5.90)
[2021-02-24 04:31] LABS: Alanine Aminotransfer (ALT/SGP 15 U/L (12-78); Albumin, Blood 2.5 g/dL (3.4-5.0); Albumin/Globulin Ratio 0.5 (0.8-1.8); Alk Phos 108 U/L (50-136); Anion Gap 4 mmol/L (6-16); Aspartate Aminotrans (AST/SGOT 15 U/L (12-37); Bilirubin, Total 0.8 mg/dL (0.1-1.0); Blood Urea Nitrogen 33 mg/dL (8-24); Bun/Creatinine Ratio 31.4 (12.0-20.0); CO2, Blood 29 mmol/L (21-32); Calcium, Blood 8.6 mg/dL (8.5-10.1); Chloride, Blood 105 mmol/L (98-108); Creatinine, Blood 1.05 mg/dL (0.60-1.20); Globulin, Blood 4.9 g/dL (2.2-4.0); Glomerular Filtration Rate >60 (60-); Glucose, Blood 162 mg/dL (70-99); Potassium, Blood 3.8 mmol/L (3.5-5.5); Sodium, Blood 138 mmol/L (136-145); Total Protein, Blood 7.4 g/dL (6.4-8.2)
--- NOTE | 2021-02-24 05:41 | NUR ---
SHIFT SUMMARY PATIENT FOUND TO BE A PLEASANT GENTLEMAN WHO IS A&OX4, FOLLOWING COMMANDS, AND COTTRELL. GENERALIZED WEAKNESS NOTED. PAINFUL COMPRESSION FRACTURE TO BACK MAKES MOVING IN BED DIFFICULT. AFLUTTER IN THE 60'S ON THE MONITOR. BP STABLE. ON 15NC AT START OF SHIFT AND HAD TO BE PUT ON AIRVO AFTER MOVING IN BED TO CHANGE BRIEF.NOW ON 50L, 84% ON AIRVO SATING HIGH 90'S. SEVERE CAICEDO NOTED AND DESATS WITH ANY EXERTION. Q2H TURNS AND PRN NORCO Q4H HELPING KEEP BACK PAIN AT TOLERABLE LEVEL. FREQUENT URINATION WITH LITTLE OUTPUT AT A TIME. POOR APPETITE AND NEEDS FOOD SET UP. ENCOURAGING ORAL INTAKE. WILL WEAN O2 TOLERATED. NO ACUTE CONCERNS AT THIS TIME. WILL CONTINUE TO MONITOR.
--- NOTE | 2021-02-24 12:52 | NUR ---
PT ALERT AND ORIENTED X4. VERY TIRED, SLOW TO RESPOND AND SOB WHEN TALKING. ON ARIVO SETTINGS AT 55L AND 90%. PT SATING 91-94% WHEN RESTING IN BED. WITH MOVEMENT OR TALKING PT DESATS DOWN TO MID 80'S ABLE TO RECOVER AFTER 2 MIN. MOUTH BREATHING. REMINDING PT TO BREATH THROUGH NOSE. TELE SHOWING AFLUTTER WITH HR 62. DENIES CHEST PAIN/PRESSURE. STRONG PULSES. VITAL SIGNS STABLE. COMPLAINS OF BACK PAIN THIS AM, MEDICATED WITH LIDOCAINE PATCH PER EMAR. Q2 TUNRING IN PLACE. BOWEL TONES PRESENT. USING URINAL IN BED, ATTENDS IN PLACE. MEPILEX ON COCCYX FOR PREVENTION. CONT PULSE MONITORING. CALL LIGHT IN REACH. WILL CONTINUE TO MONITOR STATUS.
--- NOTE | 2021-02-24 13:47 | NUR ---
UPON TURNING, CLEANING AND BOOSTING THIS AFTERNOON PT DESATED TO 81%. ABLE TO RECOVER TO 93% UPON SITTING UP IN BED AND BREATHING THROUGH NOSE. PT OVERALL TIRED AND SLOW TO RESPOND DUE TO SOB. AIRVO SETTINGS REMAIN AT 55L AND 90%. WILL CONTINUE TO MONITOR.
--- NOTE | 2021-02-24 18:52 | NUR ---
PT REMAINS ALERT AND ORIENTED X4. TIRED AND EXHAUSTED. NO ACUTE CHANGES. ARIVO SETTINGS REMAIN AT 55L AND 90%. PT SATING MID 90'S. SOB WITH MOVMENT IN BED AND DESATURATION. ABLE TO RECOEVER WITHIN A FEW MIN. COMPLAINS OF BACK PAIN. MANAGED WITH MEDICATION AND POSITIONING. SPOKE WITH SON IN LAW ON PHONE THIS EVENING TO GIVE UPDATE. SON IN LAW SPOKE ABOUT CONCERNS FOR PATIENT COMING HOME AND POSSIBLY GETTING HOME HEALTH AT HOME. DR. MIRANDA IN TO SEE PATIENT. VITAL SIGNS REMAIN STABLE. PT ABLE TO EAT WELL. OCCASIONAL COUGH WITH CLEAR SPUTUM. TELE REMAINS AFLUTTER WITH HR IN THE 60'S. WILL CONTINUE TO MONITOR AND REPORT OFF.
--- NOTE | 2021-02-25 05:25 | NUR ---
SHIFT SUMMARY PATIENT FOUND TO BE A PLEASANT GENTLEMAN WHO IS VERY DROWSY UPON START OF SHIFT. A&OX4, COTTRELL, AND FOLLOWING COMMANDS. GENERALIZED WEAKNESS NOTED. LUMBAR COMPRESSION FRACTURE PAINFUL WITH ANY MOVEMENT IN BED. ON MAX AIRVO AT START OF SHIFT AND WITHIN AN HOUR WAS PLACED ON BIPAP BY RT. ON HFT AT THIS TIME 60L, 80% SATING MID 90'S. A FLUTTER IN THE 60'S ON THE MONITOR. VSS. NORCO Q4 FOR BACK PAIN HELPING ONLY SLIGHTLY PER PATIENT REPORT. Q2H TURNS IN PLACE. INCONTINENT AT TIMES AND USING URINAL WHEN ABLE. GOOD APPETITE. NO ACUTE CONCERNS AT THIS. WILL CONTINUE TO MONITOR.
--- NOTE | 2021-02-25 08:00 | NUR ---
PT LAYING IN BED ON AIRVO, A/OX3, PLEASANTY AND COOPERATIVE WITH CARE, FOLLOWS COMMANDS WELL, DENIES PAIN, WAITING TO GIVE BREAKFAST FOR SPEECH TO EVAL HIM, LUNGS ARE CLEAR IN UPPER TORIBIO, DIM IN BASES, RESP EVEN AND UNLABORED, NO COUGH NOTED, HRR, TELE IN PLACE RUNNING AFLUTTER WITH BBB PER MONITOR, SEE STRIP, NO EDMEA NOTED, PPP+2, CAP REFILL <3SEC, VS STABLE, AFEBRILE, IV SITE IS CLEAR AND PATENT, BTX4, ABD FLAT SOFT NONTENDER, ATTENDS IN PLACE FOR INCONT, AND USES URINAL, SKIN C/W/D, MAEW, TRU, CALL LIGHT IN REACH.
--- NOTE | 2021-02-25 09:30 | NUR ---
SPEECH EVAL WAS DONE, WILL KEEP NPO FOR NOW, CALL LIGHT IN REACH.
--- NOTE | 2021-02-25 13:05 | NUR ---
02/25/21- per chart review with Dr. Cowan, pt is not improving well as he hoped. Pt to stay through the weekend. Swallow eval and barium test ordered. -red
--- NOTE | 2021-02-25 18:24 | NUR ---
PT HAD AN UNEVENTFUL DAY, DID GET WEANED DOWN SOME ON THE AIRVO, HAS NO ACTIVITY TOLERANCE, DROPS RAPIDLY WHEN MOVED, NO NEEDS OR ACUTE CHANGES AT THIS TIME, CALL LIGHT IN REACH.
[2021-02-26 04:00] LABS: BASOPHILS ABSOLUTE AUTO 0.01 K/mm3 (0.00-0.23); BASOPHILS PERCENT AUTO 0 % (0-2); EOSINOPHILS PERCENT AUTO 0 % (0-6); Hematocrit 42.8 % (37.0-53.0); Hemoglobin 13.7 g/dL (13.5-17.5); IMMATURE GRAN ABSOLUTE AUTO 0.04 K/mm3 (0.00-0.10); IMMATURE GRAN PERCENT AUTO 0 % (0-1); LYMPHOCYTES PERCENT AUTO 8 % (21-46); MONOCYTES ABSOLUTE AUTO 0.47 K/mm3 (0.16-1.47); MONOCYTES PERCENT AUTO 5 % (4-13); Mean Corpuscular HGB 31.5 pg (26.0-34.0); Mean Corpuscular Volume 98 fL (80-100); Mean Platelet Volume 10.5 fL (9.1-12.4); NEUTROPHILS ABSOLUTE AUTO 8.26 K/mm3 (1.96-9.15); NEUTROPHILS PERCENT AUTO 86 % (41-73); Platelet Count 297 K/mm3 (150-400); RDW Coefficient Variation 13.3 % (11.7-14.2); RDW Standard Deviation 47.8 fL (35.1-46.3); Red Blood Cell Count 4.35 M/mm3 (4.30-5.90); White Blood Cell Count 9.58 K/mm3 (4.00-11.30)
[2021-02-26 04:22] LABS: Anion Gap 4 mmol/L (6-16); Blood Urea Nitrogen 40 mg/dL (8-24); Bun/Creatinine Ratio 45.4 (12.0-20.0); CO2, Blood 28 mmol/L (21-32); Calcium, Blood 8.8 mg/dL (8.5-10.1); Chloride, Blood 104 mmol/L (98-108); Creatinine, Blood 0.88 mg/dL (0.60-1.20); Glomerular Filtration Rate >60 (60-); Glucose, Blood 242 mg/dL (70-99); Potassium, Blood 4.3 mmol/L (3.5-5.5); Sodium, Blood 136 mmol/L (136-145)
--- NOTE | 2021-02-26 10:21 | NUR ---
pt had swallow eval this am, is much improved and is able to have some diet, will be fed at this time, lungs are clear in upper callahan, dim in bases, resp even and unlaobred, no cough noted at this time, airvo was titrated down a bit by RT, crushed meds with pudding, no cough noted, pt irritable with this nurse, PT working with him at this time, hrr, tele in place running aflutter per monitor, see strip, no edema noted, ppp+2, cap refill <3sec, vs stable, afebrile, iv site is clear and patent, btx4, abd flat soft nontender, voids via urinal and is incont with attends in place, skin c/w/d, daren resendez, call light in reach.
--- NOTE | 2021-02-26 16:58 | NUR ---
Initial palliative care consult: Jese is a 81 year old gentleman with a history of emphysema, pulmonary fibrosis, DM, HTN, gout, Chaidez's esophagus, BPH. He was admitted on 02/21/21 with hypoxia, pneumonia and pain secondary to a compression fracture. Jese is a . He lives with his in their home. He reports that he spends most of his day sitting in his lift chair or in a wheelchair. He states that he has a ramp at his home that he ambulates with a walker down and back up 1-2 times a day for some exercise outside. He has had several falls in the past which required the assistance from first responders to pick him up off the floor. He has a compression fracture which makes movement painful at this time. He is also on an airvo which is helping with his breathing. He currently denies SOB at rest. He is able to speak in full sentences. He is irritated that the pulse oximetry machine is noisy and frequently disrupts his sleeping at night. Explained importance of monitoring his O2 sats wile he is on the airvo. He verbalized understanding. He c/o of dry eyes. Reviewed EMAR, there is an order for artificial tears for him that is available. He requested a banana. Brought pt a ripe banana which he was able to eat while this engineering writer observed him at the bedside. No choking, or coughing noted while he was eating. He states that he has been 20+ years to his second . He has one son from a previous marriage who lives in [place] who he doesn't see often. His has 4 daughters from her previous marriage. He did not want to talk about their children. Discussed his DNR status. He thinks he has paperwork at home (possibly AD or POLST.) He states "My is in charge of that." [facility] any [facility] or POLST they may have on file. Pt confirms his DNR status at this time. He states that he no longer drives due to the neuropathy in his feet. He states his doctor and took away his license about a year ago. He watches TV at home "To break up the monotony." He denies any other hobbies. His goal is to be able to go home. He is unsure of how much help he will need at home. It is likely that he may need rehab after discharge before being able to go home. He states that he is service connected at the [place]. He may possibly qualify for some caregiver assistance at home. He does report that one of his stepdaughter's does the grocery shopping for them. 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 PC to continue to follow for symptom management and advanced care planning as needed.
--- NOTE | 2021-02-26 18:17 | NUR ---
pt resting in bed, ate a good amount of dinner, no acute changes this shift. has been turned throughout the day. call light in reach.
--- NOTE | 2021-02-27 05:34 | NUR ---
A/O X4. PLEASANT AND COOPERATIVE. CALL LIGHT WITHIN REACH. INCREASED OXYGEN NEEDS. AIRVO/HIGH FLOW N/C TURNED UP FROM 65%-90%. SEVERE DYSPNEA WITH ANY EXERTION. PT RECEIVED BED BATH, HAD A BOWEL MOVEMENT AND REPOSITIONED. TOOK SEVERAL HOURS TO RECOVER. SLEPT WELL FOR SEVERAL HOURS THIS AM. VSS.
--- NOTE | 2021-02-27 13:13 | NUR ---
AM NOTE PATIENT ALERT AND ORIENTED X 4. VS AT 0811 ARE FOLLOWS. BP 144/76, HR 61, SPO2 90%, 50L/MIN AT 91%O2 VIA AIRVO. PT DESATURATES W/ EXERTION. PATIENT DENIES CHEST PAIN OR PRESSURE BUT COMPLAINED OF LOWER BACK PAIN. LIDOCAINE PATCH CURRENTLY IN PLACE PER EMAR ORDERS. PT IS ON PUREED DIET WITH HEAD OF BED AT 90 DEGREEES. LUNG SOUNDS WERE COARSE T/O WITH SHALLOW RESPIRATIONS. PT COMPLAINED OF NOT GETTING ENOUGH REST LAST NIGHT AND HAS BEEN RESTING OR WATCHING TV FOR MAJORITY OF MORNING. BED IS IN LOW, CALL LIGHT IN REACH, WILL CONTINUE TO MONITOR.
--- NOTE | 2021-02-27 14:15 | NUR ---
Brief visit with Jese this afternoon. When asked how his breathing was he stated "In and out." He denies SOB, however he appears to only speak in short sentences today before getting winded. He has no concerns at this time. He reports he spoke with two doctors today and the plan is to contiue with current treatments. He has no questions. Will allow him to rest. PC to continue to follow.
--- NOTE | 2021-02-27 19:35 | NUR ---
SHIFT SUMMARY PATIENT IS ALERT AND ORIENTED X 4. HE APPEARED TO BE RESTING FOR MAJORITY OF SHIFT. VITAL SIGNS ARE FOLLOWS AT 1527; BP 130/73, SPO2 92% VIA AIRVO AT 50L/MIN, 89%. PATIENT WOULD DESATURATE UPON EXERTION, TALKING, OR BOOSTING IN BED. THIS EVENING PATIENT APPEARED INCONTINENT AND IS NOW WEARING BRIEFS, SKIN IS CLEAN, DRY, AND INTACT. HEALTH ASSESSMENT AND TREATMENT TEACHER AND ONCOMING NURSE NOTIFIED OF INCONTINENT EPISODE. NO OTHER ACUTE CHANGES NOTED, PATIENT IS NOW SLEEPING, BED IN LOW/LOCK, CALL LIGHT IN REACH, BED ALARM ON. REPORT GIVEN TO PAT JUÁREZ TO ASSUME CARE.
--- NOTE | 2021-02-27 19:51 | NUR ---
THIS RN HAS REVIEWED THE NURSING STUDENTS DOCUMENTATION AND AM IN AGREEMENT. PT DESATURATED WITH MINIMAL MOVEMENT, PT ON AIRVO 50L 89-91% FIO2 T/O SHIFT. VSS. NO OTHER ACUTE CHANGES NOTED. REPORT GIVEN TO ONCOMING RN.
[2021-02-28 03:43] LABS: BASOPHILS ABSOLUTE AUTO 0.01 K/mm3 (0.00-0.23); BASOPHILS PERCENT AUTO 0 % (0-2); EOSINOPHILS PERCENT AUTO 0 % (0-6); Hematocrit 44.8 % (37.0-53.0); Hemoglobin 14.3 g/dL (13.5-17.5); IMMATURE GRAN ABSOLUTE AUTO 0.04 K/mm3 (0.00-0.10); IMMATURE GRAN PERCENT AUTO 0 % (0-1); LYMPHOCYTES ABSOLUTE AUTO 1.31 K/mm3 (0.84-5.20); LYMPHOCYTES PERCENT AUTO 15 % (21-46); MONOCYTES ABSOLUTE AUTO 1.42 K/mm3 (0.16-1.47); MONOCYTES PERCENT AUTO 16 % (4-13); Mean Corpuscular HGB 31.4 pg (26.0-34.0); Mean Corpuscular HGB Conc 31.9 g/dL (31.5-36.5); Mean Corpuscular Volume 99 fL (80-100); NEUTROPHILS ABSOLUTE AUTO 6.28 K/mm3 (1.96-9.15); NEUTROPHILS PERCENT AUTO 69 % (41-73); Platelet Count 277 K/mm3 (150-400); RDW Coefficient Variation 13.2 % (11.7-14.2); RDW Standard Deviation 47.8 fL (35.1-46.3); Red Blood Cell Count 4.55 M/mm3 (4.30-5.90); White Blood Cell Count 9.06 K/mm3 (4.00-11.30)
[2021-02-28 04:05] LABS: Alanine Aminotransfer (ALT/SGP 41 U/L (12-78); Albumin, Blood 2.6 g/dL (3.4-5.0); Albumin/Globulin Ratio 0.6 (0.8-1.8); Alk Phos 120 U/L (50-136); Anion Gap 3 mmol/L (6-16); Aspartate Aminotrans (AST/SGOT 25 U/L (12-37); Bilirubin, Total 0.8 mg/dL (0.1-1.0); Blood Urea Nitrogen 32 mg/dL (8-24); Bun/Creatinine Ratio 34.8 (12.0-20.0); CO2, Blood 29 mmol/L (21-32); Calcium, Blood 8.8 mg/dL (8.5-10.1); Chloride, Blood 104 mmol/L (98-108); Creatinine, Blood 0.92 mg/dL (0.60-1.20); Globulin, Blood 4.7 g/dL (2.2-4.0); Glomerular Filtration Rate >60 (60-); Glucose, Blood 136 mg/dL (70-99); Potassium, Blood 4.1 mmol/L (3.5-5.5); Sodium, Blood 136 mmol/L (136-145); Total Protein, Blood 7.3 g/dL (6.4-8.2)
--- NOTE | 2021-02-28 06:11 | NUR ---
No changes for pt t/o noc. Oxygen requirements unchanged. Hypoxic and increased work of breathing with exertion, activity and extended conversation. swallows meds well with applesauce. chronic back pain medicated with po norco w/ reported pain relief. pt reports getting more rest with pain alleviated. incontinent at times. using call light appropriately. vss.
--- NOTE | 2021-02-28 07:41 | NUR ---
AM NOTE PT APPEARS TO BE SLEEPING BUT RESPONDS TO VERBAL STIMULUI. VITAL SIGNS AT 0740 ARE FOLLOWS; BP 139/73, HR 60, SPO2 89% VIA AIRVO AT 50L/MIN, 93% O2, RR 22. WLL CONTINUE TO MONITOR T/O SHIFT. BED IN LOW/LOCK, CALL LIGHT IN REACH, BED ALARM ON.
[2021-02-28 09:41] LABS: Vancomycin, Trough 21.2 ug/mL (5.0-10.0)
--- NOTE | 2021-02-28 18:10 | NUR ---
SHIFT SUMMARY PATIENT ALERT AND ORIENTED X 4. HE IS COOPERATIVE W/ CARE. VITALS AT 1541 ARE FOLLOWS; BP 120/77, SPO2 87% AT 50L/MIN VIA AIRVO AT 93% O2, RR 16 AND SHALLOW, HR 60 AND A FLUTTER PER HOME TEACHING GRADES 9 THRU 12 TEACHER REPORT THIS AM. RESPIRATORY THERAPY WAS IN THIS AFTERNOON AND CHANGED PT FROM AIRVO TO BI-PAP. PT NOW ON AIRVO AGAIN. PATIENT REPORTED PAIN THAT COMES AND GOES; WHEN PAIN OCCURS IT IS 5/10. LIDOCAINE PATCH IN PLACE FOR PAIN ON LOWER BACK. THIS STUDENT EDUCATED PATIENT ON IMPORTANCE OF NOTIFYING STAFF WHEN PAIN OCCURS SO THAT WE CAN TREAT APPROPRIATELY PER EMAR ORDERS. PT CONTINUES TO UTILIZE URINAL FOR VOIDING. NO OTHER ACUTE CHANGES NOTED. WILL CONTINUE TO MONITOR. BED IN LOW/LOCK, BED ALARM ON, CALL LIGHT IN REACH.
--- NOTE | 2021-02-28 19:33 | NUR ---
THIS RN HAS REVIEWED THIS NURSING STUDENTS DOCUMENTATION AND AM IN AGREEMENT. PT SPO2 >90% FOR MAJORITY OF SHIFT AT REST/WHILE SLEEPING, ANY MOVEMENT OR TALKING PT DESATURATED TO MID 80'S, PT PLACED ON BIPAP THIS AFTERNOON, PT APPEARED TO TOLERATE BIPAP WELL. OTHER VSS. NO OTHER ACUTE CHANGES NOTED. REPORT GIVEN TO ONCOMING RN.
[2021-03-01 04:38] LABS: BASOPHILS ABSOLUTE AUTO 0.01 K/mm3 (0.00-0.23); BASOPHILS PERCENT AUTO 0 % (0-2); EOSINOPHILS PERCENT AUTO 0 % (0-6); Hematocrit 46.7 % (37.0-53.0); Hemoglobin 14.9 g/dL (13.5-17.5); IMMATURE GRAN ABSOLUTE AUTO 0.06 K/mm3 (0.00-0.10); IMMATURE GRAN PERCENT AUTO 1 % (0-1); LYMPHOCYTES PERCENT AUTO 21 % (21-46); MONOCYTES ABSOLUTE AUTO 1.07 K/mm3 (0.16-1.47); MONOCYTES PERCENT AUTO 12 % (4-13); Mean Corpuscular HGB 31.4 pg (26.0-34.0); Mean Corpuscular HGB Conc 31.9 g/dL (31.5-36.5); Mean Corpuscular Volume 99 fL (80-100); NEUTROPHILS PERCENT AUTO 66 % (41-73); Platelet Count 307 K/mm3 (150-400); RDW Coefficient Variation 13.2 % (11.7-14.2); RDW Standard Deviation 47.9 fL (35.1-46.3); Red Blood Cell Count 4.74 M/mm3 (4.30-5.90); White Blood Cell Count 8.64 K/mm3 (4.00-11.30)
--- NOTE | 2021-03-01 04:58 | NUR ---
FAN RUNNER SUMMARY PT REFUSED BIPAP INITIALLY AT START OF THE SHIFT BUT WAS UNABLE TO MAINTAIN O2 SATS >90% ON AIRVO 50L @ 92% SO HE WAS PLACED ON BIPAP W 80% O2 AND HAS MAINTAINED 90-94% O2 SATS ALL SHIFT. PT HAS BEEN IRRITABLE THIS SHIFT NOT WANTING TO PARTICIPATE IN CARE. PT MAINTAINED AFLUTTER 59-60'S MOST OF THE SHIFT HOWEVER HAD TWO EPISODES OF JAZZ CARDIA LOW 39 BPM. PT DENIED ANY CP OR PRESSURE THIS SHIFT. BP'S STABLE ALTHOUGH SLIGHTLY ELEVATED THIS AM. WILL REPORT TO ONCOMING RN.
[2021-03-01 04:59] LABS: Alanine Aminotransfer (ALT/SGP 42 U/L (12-78); Albumin, Blood 2.7 g/dL (3.4-5.0); Albumin/Globulin Ratio 0.6 (0.8-1.8); Alk Phos 129 U/L (50-136); Anion Gap 2 mmol/L (6-16); Aspartate Aminotrans (AST/SGOT 21 U/L (12-37); Bilirubin, Total 0.7 mg/dL (0.1-1.0); Blood Urea Nitrogen 30 mg/dL (8-24); Bun/Creatinine Ratio 32.7 (12.0-20.0); CO2, Blood 31 mmol/L (21-32); Chloride, Blood 102 mmol/L (98-108); Creatinine, Blood 0.92 mg/dL (0.60-1.20); Globulin, Blood 4.7 g/dL (2.2-4.0); Glomerular Filtration Rate >60 (60-); Glucose, Blood 135 mg/dL (70-99); Potassium, Blood 4.1 mmol/L (3.5-5.5); Sodium, Blood 135 mmol/L (136-145); Total Protein, Blood 7.4 g/dL (6.4-8.2)
--- NOTE | 2021-03-01 19:55 | NUR ---
SHIFT SUMMARY ASSUMED CARE OF PT AT APPROX 0700 THIS AM. PT A&O4; IRRITABLE BUT COOPERATIVE WITH CARE. PT ON BIPAP 07/08 80% FIO2; TITRATED T/O SHIFT TO FIO2 60%, SPO2 >90% ON BIPAP. TRIALED ON AIRVO PT WOULD MAINTAIN SATURATIONS FOR APPROX 30 -60 MINS AND DESATURATED TO MID 80'S, THEN WOULD REPLACE BIPAP. Q4 ORAL CARE COMPELTED. PT PLACED NPO PER ST, PLANS TO DO A BARRIUM WHEN RESP STATUS IMPROVES. CLINIMIX STARTED THIS AFTERNOON DUE TO NPO STATUS. LS COARSE T/O, DIM BASES. PT REPORTS PAIN IN BACK WHEN ASKED IF HE WANTED PAIN MEDICATIONS PT REFUSED. BS HYPOATIVE, HAS HAD SMEARS OF BM. PER TELE A.FLUTTER 50-60'S PACED. BP STABLE. OTHER VSS. PT INCONTINENT. NO OTHER ACUTE CHANGES NOTED. REPORT GIVEN TO ONCOMING RN.
[2021-03-02 03:53] LABS: BASOPHILS ABSOLUTE AUTO 0.03 K/mm3 (0.00-0.23); BASOPHILS PERCENT AUTO 0 % (0-2); EOSINOPHILS ABSOLUTE AUTO 0.03 K/mm3 (0.00-0.68); EOSINOPHILS PERCENT AUTO 0 % (0-6); Hematocrit 48.4 % (37.0-53.0); Hemoglobin 15.3 g/dL (13.5-17.5); IMMATURE GRAN ABSOLUTE AUTO 0.09 K/mm3 (0.00-0.10); IMMATURE GRAN PERCENT AUTO 1 % (0-1); LYMPHOCYTES PERCENT AUTO 23 % (21-46); MONOCYTES ABSOLUTE AUTO 1.42 K/mm3 (0.16-1.47); MONOCYTES PERCENT AUTO 12 % (4-13); Mean Corpuscular HGB 31.2 pg (26.0-34.0); Mean Corpuscular HGB Conc 31.6 g/dL (31.5-36.5); Mean Corpuscular Volume 99 fL (80-100); Mean Platelet Volume 10.2 fL (9.1-12.4); NEUTROPHILS ABSOLUTE AUTO 7.76 K/mm3 (1.96-9.15); NEUTROPHILS PERCENT AUTO 64 % (41-73); Platelet Count 309 K/mm3 (150-400); RDW Standard Deviation 46.7 fL (35.1-46.3); White Blood Cell Count 12.13 K/mm3 (4.00-11.30)
--- NOTE | 2021-03-02 05:19 | NUR ---
SHIFT SUMMARY PATIENT IS ALERT AND ORIENTED X4, CAN BE FORGETFUL AT TIMES AND IRRITABLE. PATIENT ON BIPAP MOST THE NIGHT 07/08 FI02 60% WITH SATS @94%, SWITCHED TO AIRVO AT APPROX 0300, FIO2 100 AND 60 LPM, 02 SATS 91%. ORAL CARE PROVIDED Q4 HOURS. REPOSITIONING Q2 HOURS, ATTENDS CHANGES PRN PATIENT USES URINAL AT TIMES. VSS, NO ACUTE CHANGES. CALL LIGHT IN REACH.
--- NOTE | 2021-03-02 09:41 | NUR ---
PALLIATIVE CARE IN ROOM, PT ASKS THAT REPOSITIOING AND VITALS BE HELD FOR NOW. PT'S PO MEDS ARE HELD PER THE ORDERS OF SPEECH THERAPY, DR BREEN STS THAT PO MEDS SHOULD BE GIVEN, CONSULTING WITH SPEECH THERAPY PRIOR TO GIVING ORAL MEDICATIONS
--- NOTE | 2021-03-02 10:22 | NUR ---
Pt resting in bed upon arrival. Dr Pond at bedside discussing plan of care options with Pt. This RN remained in room after Dr Pond leaves. Pt is A&OX4 and reports 7/10 pain in his back. Continued conversation regarding options including Peg-Tube placement and comfort care. Discussed current respiratory status and encouraged Pt to discuss fears and concerns. Pt reports eating is pleasurable for him and is unsure if he is willing to give that up. Pt reports feeling overwhelmed and needs to process information. Recieved verbal permission from Pt to contact spouse and discuss case. Assisted ship engineer Nicole with boosting Pt up in bed. Natalie will address Pt's pain. Called and spoke with Pt's spouse Elmira. Provided update and options to consider. Carlos reports plan to visit with Pt to assist with decision making. Spoke with Primary RN Fannie and discussed case. Palliative Care will F/U when spouse arrives to assist with questions or concerns.
--- NOTE | 2021-03-02 15:38 | NUR ---
PT'S FAMILY AND PT MET WITH [facility]. FAMILY DID NOT WISH TO MAKE ANY DECISIONS AT THE TIME OF THE MEETING, FAMILY ABRUPTLY LEFT AND DID NOT SPEAK WITH THIS RN OR LILLIAN FROM [facility].
--- NOTE | 2021-03-02 15:47 | NUR ---
03/02/21- per chart review with Dr. Pond, Pt's respiratory is getting worse and there still is an increase risk of aspiration. Pt is wanting to eat for pleasure. is to talk with pt and family about pt's code status and if they would consider putting the pt on comfort measures. This would allow him to eat for pleasure. If pt doesn't want to change code status, he will need some form of feeding assistance due to aspiration. Pt is on high O2 Airvo. -kjw
--- NOTE | 2021-03-02 16:14 | NUR ---
Pt F/U visit this afternoon. Pt's spouse, daughter, and son in law at bedside. Engaged in therapeutic conversation regarding goals of care. Provided update and answered questions. Discussed options for care including Peg-Tube placement and considering comfort care. Family reports Pt probably would not want Peg tube placement. Family would like to discuss further with Pt and will let staff know on decision. Family expresses appreciation of visit and reports no other concerns at this time. Spoke with Primary RN Fannei and discussed case. Palliative Care will remain available.
--- NOTE | 2021-03-02 18:20 | NUR ---
SHIFT NOTE PT HAS BEEN BETWEEN AIRVO AND BIPAP T/O THE DAY. SPO2 REMAINS ABOVE 89% T/O THE DAY. PT ALERT, AGITATED. FAMILY WAS IN EARLIER TODAY TO DISCUSS PT'S PLAN OF CARE AND THEY LEFT WITHOUT DISCUSSING THEIR WISHES WITH STAFF. VSS. PT REMAINS ON STRICT NPO.
--- NOTE | 2021-03-02 23:41 | NUR ---
PATIENT IS ALERT AND ORIENTATED, ABLE TO MAKE NEEDS KNOWN UNABLE TO SUSTAIN ON [place] NC 95% SATURATIONS DIPPED DOWN INTO 83-86%, PATIENT PUT BACK ON BIPAP 05/10 WITH FIO2 95% CURRENTLY HE IS ON FIO2 55% MAINTAINING AT 94 % TV [id number] RR 22 AND 99% PT TRIGGER. PATIENT WAS EDUCATED ON LEAVING BIPAP ON HIS FACE AND NOT REMOVING IT TO TALK, GUSTAVO FAMILY CALLED [facility] AND UPDATE GIVEN. FAMILY WILL BE IN AGAIN TOMORROW.
[2021-03-03 06:45] LABS: BASOPHILS ABSOLUTE AUTO 0.04 K/mm3 (0.00-0.23); BASOPHILS PERCENT AUTO 0 % (0-2); EOSINOPHILS ABSOLUTE AUTO 0.13 K/mm3 (0.00-0.68); EOSINOPHILS PERCENT AUTO 1 % (0-6); Hematocrit 48.1 % (37.0-53.0); Hemoglobin 15.3 g/dL (13.5-17.5); IMMATURE GRAN ABSOLUTE AUTO 0.12 K/mm3 (0.00-0.10); IMMATURE GRAN PERCENT AUTO 1 % (0-1); LYMPHOCYTES ABSOLUTE AUTO 2.88 K/mm3 (0.84-5.20); LYMPHOCYTES PERCENT AUTO 23 % (21-46); MONOCYTES ABSOLUTE AUTO 1.16 K/mm3 (0.16-1.47); MONOCYTES PERCENT AUTO 9 % (4-13); Mean Corpuscular HGB 31.5 pg (26.0-34.0); Mean Corpuscular HGB Conc 31.8 g/dL (31.5-36.5); Mean Corpuscular Volume 99 fL (80-100); Mean Platelet Volume 9.8 fL (9.1-12.4); NEUTROPHILS ABSOLUTE AUTO 8.07 K/mm3 (1.96-9.15); NEUTROPHILS PERCENT AUTO 65 % (41-73); Platelet Count 275 K/mm3 (150-400); RDW Coefficient Variation 13.4 % (11.7-14.2); RDW Standard Deviation 48.2 fL (35.1-46.3); Red Blood Cell Count 4.86 M/mm3 (4.30-5.90)
[2021-03-03 07:05] LABS: Anion Gap 5 mmol/L (6-16); Blood Urea Nitrogen 32 mg/dL (8-24); Bun/Creatinine Ratio 35.8 (12.0-20.0); CO2, Blood 27 mmol/L (21-32); Calcium, Blood 8.9 mg/dL (8.5-10.1); Chloride, Blood 106 mmol/L (98-108); Glomerular Filtration Rate >60 (60-); Glucose, Blood 113 mg/dL (70-99); Potassium, Blood 3.8 mmol/L (3.5-5.5); Sodium, Blood 138 mmol/L (136-145)
--- NOTE | 2021-03-03 09:12 | NUR ---
Spoke with Primary RN Fannie and discussed case. Report from retail shift manager with Pt stating he wanted to dye. Pt resting in bed and wearing BIPAP. Pt more withdrawn today and does not engage in conversation much. Pt confirms statement of wanting to dye. Discussed the option for comfort care. Pt states "I'm still kicking that around". Offered therapeutic touch and gentle voice. Pt agreeable for this RN to F/U this afternoon. Palliative Care will remain available.
--- NOTE | 2021-03-03 16:18 | NUR ---
F/U visit this afternoon. Pt spouse Elmira at bedside. Elmira brings in Pt's advanced directive. Obtained copy and will deliver to medical records. Pt checked no tube feedings and no life support in all scenarios. Engaged in therapeutic discussion regarding goals of care. After several minutes of discussion Pt reports wanting to focus on comfort. Re-enforced education on comfort care philosophy. Pt is still agreeable with moving forward with comfort care. Spouse Elmira is also in agreement. Discussed the potential of Pt passing away in the hospital but if stabalizes then hospice can be discussed. Discussed oxygen support options for comfort and Pt would like to titrate oxygen down as comfort will allow. Spoke with Dr Pond and discussed case. Placed comfort care order, comfort care order set, and D/C maintenance medications per V/O from Dr Pond. Spoke with Primary RN Fannie and discussed case. Palliative Care will remain available for symptom management and supportive visits.
--- NOTE | 2021-03-03 17:08 | NUR ---
03/03/21-Per chart review pt's expressed desire to and is considering transferring to comfort care. Palliative care met with pt and this afternoon. Pt's status has been changed to DNR. Pt's health has deteriorated over night. Pt would like to decrease his O2 as his comfort will allow. Comfort care orders have been placed and d/c maintenance medications. If pt improves enough to be transferred home, will try to do this. -red
--- NOTE | 2021-03-03 17:23 | NUR ---
SHIFT NOTE PT PLACED ON COMFORT CARE DURING THIS SHIFT. PT STS THAT PAIN IS WELL MANAGED, HE IS TREATED WITH ROXANOL FOR AIR HUNGER. PT IS TAKEN OFF OF BIPAP AND PLACED ON AIRVO WILL TITRATE FOR COMFORT. PT USING URINAL WITH ASSISTANCE. PT ALERT, REQUESTS [employer] FOR DINNER WHICH WERE ORDERED.
--- NOTE | 2021-03-03 22:03 | NUR ---
THIS LN GAVE REPORT TO JAVAN JUÁREZ ON 3RD MEDICAL FLOOR PATIENT WILL TRANSFERRING TO ROOM 308, WAS CALLED AND NOTIFIED, STATED WANTS [facility], ALL BELONGINGS PRESENT AND CHART TO TRANSPORT WITH PATIENT.
--- NOTE | 2021-03-04 06:23 | NUR ---
SHIFT SUMMARY PATIENT MEDICATED ONCE PER EMAR TO HELP WITH OXYGENATION AND BREATHING. HE HAD NO COMPLAINTS OF PAIN. SLEPT WELL OVERNIGHT. IV PATENT AND FLUSHED. BED IN LOWEST POSITION WITH WHEELS LOCKED AND ALARM ON. CALL LIGHT WITHIN REACH. REPORT GIVEN TO ONCOMING RN.
--- NOTE | 2021-03-04 10:01 | NUR ---
Pt resting in bed upon arrival and visiting with family. Pt appears comfortable with no S/S of distress at this time. Spoke with Pt's daughter and discussed plan of care. Daughter reports Pt tends to be in a better mood when he receives pain medication. Spoke with Primary RN Erika and discussed case. Pt was found with his AIRVO NC off and appeared comfortable but NC placed back on. Discussed considering D/C AIRVO. Spoke with RT Arabella and discussed case. Arabella will of standard oxygen via NC. Will order comfort care cart. Palliative Care will remain available for symptom management and supportive visits.
--- NOTE | 2021-03-04 13:10 | NUR ---
F/U Comfort Care Visit Pt resting in bed with ELECTRICAL SYSTEMS ENGINEER assisting with his lunch. Pt wearing O2 via NC. Pt appears slightly confused but alert and in good spirits. When asked how he is feeling Pt states "with my fingers". Pt appears comfortable wit no S/S of distress at this time. Spouse exits room with this RN and asks about prognosis. Discussed that every Pt is a little different and is difficult to determine. Discussed the potential of Pt returning home with hospice. Spouse Elmira expresses appreciation and reports no other concerns at this time. Spoke with Primary RN Erika and discussed case. Spoke with Gervais Corporate Travel Expert Kandy and discussed case. Palliative Care will remain available.
--- NOTE | 2021-03-04 17:08 | NUR ---
UPDATE 03/04/21- LILLIAN WITH PALLIATIVE CARE CAME AND LET SALES ADVISOR KNOW THAT THE PT HAS BEEN WEANED OFF THE AIRVO AND IS ON ROOM AIR. HE REPORTS THAT THE PT IS DOING WELL. THEY HAVE DISCUSSED KEEPING THE PT OVER THE WEEKEND TO SEE HOW HE DOES AND HE COULD POTENTIALLY GO HOME ON HOSPICE ON SUNDAY. PROVIDED PT'S FAMILY WITH INFORMATION FOR HOSPICE SERVICES WITH [facility] AND [facility].-BARTOLOME 03/04/21- PER CHART REVIEW WITH DR. BREEN, PT AND FAMILY HAVE ELECTED TO HAVE HIM GO ON COMFORT CARE IN THE HOSPITAL. TRIED TO CONTACT TO DISCUSS PT'S DISCHARGE PLAN, WOULD SHE BE WILLING TO TAKE THE PT HOME. IF SHE GOT HIM HOME AND HIS CARE IS TOO DIFFICULT FOR HER, [facility] W[facility] BE EL[facility]. WOULD NEED TO BE THE [facility] TO [facility]. -BARTOLOME
--- NOTE | 2021-03-04 19:06 | NUR ---
SHIFT SUMMARY JEAN WAS PAINFUL THIS SHIFT AND GOT SL ROXANOL AND IV MS WHICH HELPED A LOT. ALSO WEANED DOWN HIS AIRVO TO HIGH DANETTE AT 7L. PT SAYS HIS BREATHING FEELS GOOD. INCONTINENT URINE X1, CONTINENT URINE IN URINAL X2 THIS SHIFT. POOR PO INTAKE. LOTS OF FAMILY IN ROOM. SKIN GETTING DUSKIER. ORIENTED BUT FORGETFUL. CALL LIGHT IN REACH, FREQUENT CHECKS. WCTM
--- NOTE | 2021-03-05 04:23 | NUR ---
SHIFT SUMMARY- PT. A&O, ON COMFORT CARE. MEDICATED FOR PAIN DURING THE NIGHT, APPEARED TO HAVE GOOD RELIEF. REPOSTIONED FOR COMFORT AND PRN. INCONT, ATTENDS IN PLACE. PT. SLEPT ON/OFF T/O THE NIGHT. CALL LIGHT WITHIN REACH AND SIDE RAILS UPX2. WILL CONT TO MONITOR.
--- NOTE | 2021-03-05 15:43 | NUR ---
pt resting no signs of air hunger or pain. family took a break.
--- NOTE | 2021-03-05 18:48 | NUR ---
SHIFT SUMMARY JEAN GOT THREE DOSES SL ROXANOL THIS SHIFT FOR PAIN AND FOR AIR HUNGER. FAMILY VISITED. PT INCONTINENT X1 THIS SHIFT. MORE LETHARGIC AND CONFUSED THIS SHIFT. POOR PO INTAKE. CALL LIGHT IN REACH,F REQUENT CHECKS PERFORMED
--- NOTE | 2021-03-06 04:58 | NUR ---
SHIFT SUMMARY PT HAS RESTED COMFORTABLY T/O SHIFT, COOPERATIVE W/CARE, ALERT/ABLE TO ANSWER QUESTIONS APPROPIATELY, MEDICATED PER MAR FOR PAIN/AIR HUNGER, REPOS Q2 FOR COMFORT, SPOUSE CALLED AND WAS UPDATED THIS SHIFT; PT APPEARS TO BE SLEEPING COMFORTABLY @ THIS TIME, CALL LIGHT IN REACH, WILL CONT TO MONITOR UNTIL REPORT GIVEN TO DAY RN.
--- NOTE | 2021-03-06 16:47 | NUR ---
SHIFT SUMMARY PT WOULD ONLY ANSWER QUESTIONS AT TIMES; FAMILY AT BEDSIDE. PT RECEIVED BED BATH TODAY. MEDICATION GIVEN FOR PAIN; PT BREATHING HEAVILY NOW- MEDICATED PER EMAR STARTED MORPHINE PER PALLIATIVE CARE. PT FAMILY EDUCATED ABOUT THE MEDICATION. Q2 TURN. PT IS HAVING A HARD TIME UNDERSTANDING ABOUT THE RISK OF FEEDING THE PT WHICH CAN BE ASPIRATION. BED IS IN THE LOWEST POSITION AND CALL LIGHT WITHIN REACH
--- NOTE | 2021-03-06 18:09 | NUR ---
Patient's family is bedside as patient struggles to breath. They are tearful and are encouraged as they recall wonderful memories of the patient's life and personality. I provide therapeutic listening, a calming presence and prayer. Family respond well and show signs of being comforted. Patient quieted significantly after the prayer and show signs of increased peace. Spiritual care will remain available.
--- NOTE | 2021-03-07 04:27 | NUR ---
SHIFT SUMMARY NO ACUTE CHANGES THIS SHIFT, PT HAS BEEN RESPONSIVE TO PAIN ONLY, PREMEDICATED T/O SHIFT FOR REPOS, MEDICATED PER MAR FOR PAIN & AIR HUNGER, FAMILY AT BEDSIDE T/O SHIFT, PT APPEARS TO BE SLEEPING COMFORTABLY @ THIS TIME, WILL CONT TO MONITOR UNTIL REPORT GIVEN TO DAY RN.
--- NOTE | 2021-03-07 11:37 | NUR ---
03/07/21- per chart review with Dr. Cowan, pt is on comfort care/hospice. spoke with the family and they would prefer that the pt stay in the hospital until he passes due to his current state and social concerns with pt's . Family does not want him to return home and would prefer that if pt was to d/c, that he go either to SNF or hospice house. There is no hospice house in [facility]. -red
--- NOTE | 2021-03-07 11:40 | NUR ---
Comfort Care Visit Pt resting in bed with his eyes partialy opened and is non responsive. Moderate secretions noted. Pt appears to have transitioned and is actively dying. Family at bedside. Offered therapeutic listening and answered questions. Gentle education on S/S Pt may experience. Educated on the importance of speaking with Pt and re-assurance. Family expresses appreciation of visit and reports no other concerns at this time. Spoke with Primary RN Zeenat, discussed case and reviewed comfort medications. Palliative Care will remain available.
--- NOTE | 2021-03-07 16:20 | NUR ---
Spiritual care visit conducted. Patient is lying in bed and has loud graggled breathing. Patient's spouse, Regina tells me about her family history and how she has learned to cope well with and dying. She is tearful and strong. She also talks at length about her and his many amazing attributes. I provide therapeutic listening, anticipatory grief support and a calming presence. She responds well and shows signs of being comforted. I will continue to remain available to patient and family.
--- NOTE | 2021-03-07 18:50 | NUR ---
COMFORT CARE RECIEVED BEDSIDE REPORT. APPEARED TO BE RESTING WITHOUT ANY NEEDS AT THIS TIME. FAMILY AT BEDSIDE WHICH CONFIRMED. CONTINUE WITH CURRENT PLAN OF CARE.
--- NOTE | 2021-03-07 20:44 | NUR ---
COMFORT CARE APPEARS TO BE RESTING. FAMILY CONCERNED ABOUT PAIN MANAGEMENT; ASSESSED FOR PAIN, MEDICATED PER EMAR. REPOSITIONED. SUCTION ATTEMPTED; ORAL CARE PERFORMED. ATROPINE FOR SECRETIONS. FAMILY AT BEDSIDE. BED IN LOWEST; ALARM ON. CALL LIGHT WITHIN REACH. CONTINUE WITH CURRENT PLAN OF CARE.
--- NOTE | 2021-03-07 22:15 | NUR ---
COMFORT CARE APPEARS TO BE RESTING. FAMILY REMAINS AT BEDSIDE. NO ACUTE NEEDS AT THIS TIME. CONTINUE WITH CURRENT PLAN OF CARE.
--- NOTE | 2021-03-08 00:40 | NUR ---
COMFORT CARE APPEARS TO BE RESTING. SECRETIONS NOTED; MEDICATED PER EMAR. REPOSITIONED. ORAL CARE PERFORMED. FAMILY AT BEDSIDE. NO ACUTE NEEDS AT THIS TIME. BED IN LOWEST; ALARM ON. CALL LIGHT WITHIN REACH. CONTINUE WITH CURRENT PLAN OF CARE.
--- NOTE | 2021-03-08 02:40 | NUR ---
COMFORT CARE APPEARS TO BE RESTING WITHOUT ANY NEEDS AT THIS TIME. ATTENDS DRY. FAMILY AT BEDSIDE. NO ACUTE CHANGES NOTED. BED IN LOWEST; ALARM ON. CALL LIGHT WITHIN REACH. CONTINUE WITH CURRENT PLAN OF CARE.
--- NOTE | 2021-03-08 04:40 | NUR ---
COMFORT CARE APPEARS TO BE RESTING WITH INCREASING APNEIC EPISODES. GURGLING RESPIRATIONS WITHOUT ABILITY TO SUCTION. MEDICATED PER EMAR FOR SECRETIONS. REPOSITIONED. ORAL CARE PERFORMED. SHEET PLACED WITHOUT COMFORTER R/T INCREASED WARMTH. NO OTHER ACUTE CHANGES AT THIS TIME. FAMILY AT BEDSIDE. CONTINUE WITH CURRENT PLAN OF CARE.
--- NOTE | 2021-03-08 06:18 | NUR ---
SHIFT SUMMARY MINIMAL RESPONSIVENESS; ONLY TO ORAL CARE WITH SWABS. NO RESPONSE TO PAIN OR VERBAL STIMULI. APPEARS TO BE HAVING INCREASING EPISODES OF APNEA WELL INCREASED SECRETIONS DESPITE SCAPOLAMINE AND ATROPINE. MEDICATED X1 FOR PAIN OVERNIGHT. NO S/S OF PAIN NOTED EVEN DURING REPOSITIONING. REMAINS ON O2 VIA NC. STAYED OVERNIGHT AT BEDSIDE. BED REMAINS IN LOWEST POSITION; ALARM ON. CALL LIGHT AND BELONGINGS WITHIN REACH. CONTINUE WITH CURRENT PLAN OF CARE. REPORT TO ONCOMING RN.
--- NOTE | 2021-03-08 17:06 | NUR ---
PT PASSED AT 0910 TODAY AND THIS HEDIS MANAGER VERIFIED . FAMILY WAS ENCOURAGED TO SAY THEIR GOODBYES AND TAKE NEEDED TIME WITH PT. WOLFGANG JUÁREZ NOTIFIED WELL DR MOY ALLAN OF PT'S TIME OF . ICE WAS APPLIED TO EYES PT WAS LISTED DONOR, BUT THIS WAS NOT COMPLETED AT HOSPITAL. PT WAS PICKED UP AT 1600 BY JOSE MANUEL FROM [facility]. ALL PERSONAL BELONGINGS HAD BEEN COLLECTED BY FAMILY.
== END 2021-03-08 09:10 | DRG 177 ==
LOC: ER 11:46 → MEDS 17:45 → ICUE 02-23 02:38 → PCU 02-23 17:02 → MEDS 03-03 22:30
PROVIDERS: Emergency Medicine; Family Medicine; Internal Medicine; ADMIT Internal Medicine
PROC: 5A09557 Assistance with Respiratory Ventilation, Greater than 96 Consecutive Hours, Continuous Positive Airway Pressure (ICD-10-PCS; principal; 2021-02-21)
DX: J15.212 Pneumonia due to Methicillin resistant Staphylococcus aureus (principal); J96.21 Acute and chronic respiratory failure with hypoxia; S32.049K Unspecified fracture of fourth lumbar vertebra, subsequent encounter for fracture with nonunion; J84.9 Interstitial pulmonary disease, unspecified; Z20.822 Contact with and (suspected) exposure to COVID-19; Z79.899 Other long term (current) drug therapy; Z66 Do not resuscitate; Z51.5 Encounter for palliative care; J43.9 Emphysema, unspecified; E11.9 Type 2 diabetes mellitus without complications; G47.33 Obstructive sleep apnea (adult) (pediatric); R62.7 Adult failure to thrive; Z99.81 Dependence on supplemental oxygen; I10 Essential (primary) hypertension; H44.9 Unspecified disorder of globe; E78.5 Hyperlipidemia, unspecified; N40.0 Benign prostatic hyperplasia without lower urinary tract symptoms; M10.9 Gout, unspecified; Z98.890 Other specified postprocedural states; Z87.891 Personal history of nicotine dependence; Z88.0 Allergy status to penicillin; Z88.8 Allergy status to other drugs, medicaments and biological substances; X58.XXXD Exposure to other specified factors, subsequent encounter; E66.01 Morbid (severe) obesity due to excess calories; Z68.35 Body mass index [BMI] 35.0-35.9, adult
CPT/HCPCS: 36415; 36600; 71045; 71260; 72131; 80048; 80053; 80202; 82803; 82947; 83735; 83880; 84145; 84484; 85025; 87070; 87077; 87147; 87186; 87205; 92526; 92610; 93005; 93010; 93306; 94640; 94660; 94667; 94762; 97110; 97162; 97166; 97530; 99285-25; A9270; J1885; J1940; J1956; J2270; J2920; J3010; J3370; J7050; J7512; Q9967; U0004